=== PATIENT | female | born 1940 | race Caucasian/White ===

== ENCOUNTER 2016-04-02 08:53 | Outpatient (CLI) | payer OTHER | END 2016-04-02 08:54 | disposition home or self-care (01) | DX: E03.9 Hypothyroidism, unspecified (principal); E78.5 Hyperlipidemia, unspecified ==

== ENCOUNTER 2016-07-03 20:31 | Outpatient (CLI) | payer OTHER ==
[2016-07-04 06:03] LABS: TEST RESULT REPORT (())
== END 2016-07-03 20:32 | disposition home or self-care (01) ==
LOC: LAB.R 20:31
PROVIDERS: ATTEND Nurse Practitioner Primary Care
DX: E55.9 Vitamin D deficiency, unspecified (principal); Z79.899 Other long term (current) drug therapy
CPT/HCPCS: 81599; 82306

== ENCOUNTER 2016-10-06 10:13 | Outpatient (CLI) | payer OTHER ==
--- NOTE | 2016-10-07 18:00 | Mammography Report ---
DIGITAL SCREENING MAMMOGRAM: 10/06/2016 CLINICAL INDICATION: A 76-year-old with personal history of right breast cancer status post lumpecto my and chemoradiation. COMPARISON: 09/2015, 09/2014, 09/2013, 09/2012. TECHNIQUE: Routine CC and MLO projections were obtained of the breasts. The breasts again demonstrate scattered fibroglandular densities bilaterally. Postoperative and post -treatment changes in the right breast are stable. Coarse, typically benign calcifications are prese nt. No suspicious masses, clustered microcalcifications, or regions of architectural distortion are identified. IMPRESSION: BENIGN FINDINGS. RECOMMENDATION: ROUTINE ANNUAL SCREENING UNLESS OTHERWISE CLINICALLY INDICATED. BIRADS CATEGORY: 2, BENIGN FINDINGS. STANDARD QUALIFYING STATEMENTS 1. This examination was reviewed with the aid of Computed-Aided Detection (CAD). 2. A negative or benign imaging report should not delay biopsy if clinically suspicious findings are present. Consider surgical consultation if warranted. More than 5% of cancers are not identified b y imaging. 3. Dense breasts may obscure an underlying neoplasm. JOB #: [id number] EXT JOB #:[id number]
== END 2016-10-06 10:14 | disposition home or self-care (01) ==
LOC: DI 10:13
PROVIDERS: ATTEND Nurse Practitioner Primary Care
DX: Z12.31 Encounter for screening mammogram for malignant neoplasm of breast (principal); Z08 Encounter for follow-up examination after completed treatment for malignant neoplasm; Z85.3 Personal history of malignant neoplasm of breast
CPT/HCPCS: 77067

== ENCOUNTER 2017-04-07 09:01 | Outpatient (CLI) | payer OTHER ==
[2017-04-07 14:14] LABS: BASOPHILS % (AUTO) 0.4 %; EOSINOPHILS # (AUTO) 0.2 10^3/uL (0.0-0.7); EOSINOPHILS % (AUTO) 4.6 %; LYMPHOCYTES # (AUTO) 1.5 10^3/uL (1.5-3.5); LYMPHOCYTES % (AUTO) 28.6 %; MEAN CORPUSCULAR HGB CONC 33.9 g/dL (32.0-36.0); MEAN CORPUSCULAR VOLUME 88.5 fL (81.0-99.0); MEAN PLATELET VOLUME 7.7 fL (7.9-10.8); MONOCYTES # (AUTO) 0.6 10^3/uL (0.0-1.0); MONOCYTES % (AUTO) 11.9 %; NEUTROPHILS # (AUTO) 2.8 10^3/uL (1.5-6.6); NEUTROPHILS % (AUTO) 54.5 %; PLT - PLATELET COUNT 275 10^3/uL (130-450); RED BLOOD COUNT 4.66 10^6/uL (4.20-5.40); RED CELL DISTRIBUTION WIDTH 14.5 % (12.0-15.0); WHITE BLOOD COUNT 5.1 x10^3/uL (4.8-10.8)
[2017-04-07 14:27] LABS: ALBUMIN/GLOBULIN RATIO 1.2 (1.0-2.2); ALKALINE PHOSPHATASE 48 IU/L (42-121); ALT ALANINE AMINOTRANSFERASE 13 IU/L (10-60); AST ASPARTATE AMINOTRANSFERASE 18 IU/L (10-42); BILIRUBIN,TOTAL 0.9 mg/dL (0.2-1.0); BUN - BLOOD UREA NITROGEN 16 mg/dL (6-20); CARBON DIOXIDE - CO2 26 mmol/L (21-32); CHLORIDE 97 mmol/L (101-111); CHOL/HDL RATIO 3.5 (<4.4); CHOLESTEROL 249 mg/dL; CREATININE 0.8 mg/dL (0.4-1.0); GFR - MDRD 70 (>89); GLUCOSE 92 mg/dL (70-100); HDL CHOLESTEROL 71 mg/dL; LDL CHOLESTEROL,CALCULATED 156 mg/dL; LDL/HDL RATIO 2.2 (<4.4); SODIUM 134 mmol/L (135-145); TOTAL PROTEIN 7.3 g/dL (6.7-8.2); VLDL CHOLESTEROL 22 mg/dL
== END 2017-04-07 09:02 | disposition home or self-care (01) ==
LOC: LAB.R 09:01
PROVIDERS: ATTEND Nurse Practitioner Primary Care
DX: E55.9 Vitamin D deficiency, unspecified (principal); G60.9 Hereditary and idiopathic neuropathy, unspecified; E03.9 Hypothyroidism, unspecified; E78.5 Hyperlipidemia, unspecified; Z79.899 Other long term (current) drug therapy
CPT/HCPCS: 80053; 80061; 82306; 83721; 84443; 85025

== ENCOUNTER 2017-10-16 10:12 | Outpatient (CLI) | payer OTHER ==
--- NOTE | 2017-10-20 10:39 | DEXA Report ---
Reason: ASYMPTOMATIC MENOPAUSAL STATE Procedure Date: 10/16/2017 Accession Number: [id number] / [id number] Procedure: DEX - Dexa Spine and/or Hip CPT Code: FULL RESULT: EXAM: Dexa Spine and/or Hip DATE: 10/16/2017 11:27 AM CLINICAL HISTORY: ASYMPTOMATIC MENOPAUSAL STATE TECHNIQUE: Dual energy x-ray absorptiometry (DXA) was performed on a [employer] System. Regions measured are the AP Spine, femoral neck, and if needed forearm. COMPARISON: 10/08/2015. In accordance with the International Society for Clinical Densitometry (ISCD) guidelines, data from previous exams may be reanalyzed using current recommendations and techniques. This is done to allow a more accurate basis for comparison with the current study. FINDINGS: The data for the lumbar spine is as follows: BMD (g/cm/cm) T-SCORE Z-SCORE REGION L1 1.073 -0.5 0.7 L2 1.153 -0.4 0.8 L3 1.288 0.7 1.9 L4 1.237 0.3 1.5 TOTAL 1.199 0.2 1.4 NOTE: All evaluable vertebrae are used for classification The data for the hip is as follows: BMD (g/cm/cm) T-SCORE Z-SCORE REGION Neck 0.839 -1.4 0.2 TOTAL 0.811 -1.6 -0.1 NOTE: The femoral neck or total proximal femur, whichever is lowest, is used for classification. DXA RESULTS SUMMARY: Spine SCAN DATE AGE BMD CHANGE VS CHANGE VS PREVIOUS PREVIOUS % 10[age]16/[age] 1.199 0.045* 3.9* 10/08/2015 [age] 1.154 * Denotes significant change at the 95% confidence level. Denotes dissimilar scan types or analysis methods. DXA RESULTS SUMMARY: Hip SCAN DATE AGE BMD CHANGE VS CHANGE VS PREVIOUS PREVIOUS % 10[age]16/2017 [age] 0.811 -0.031 -3.7 10/08/2015 [age] 0.842 * Denotes significant change at the 95% confidence level. Denotes dissimilar scan types or analysis methods. IMPRESSION: THE WHO CLASSIFICATION BASED ON THE INTERNATIONAL REFERENCE STANDARD IS OSTEOPENIA. THE FRACTURE RISK IS INCREASED. RECOMMENDATION: Patients with diagnosis of osteoporosis or osteopenia should have regular bone mineral density assessment. For those eligible for Medicare, routine testing is allowed once every 2 years. Testing frequency can be increased for patients who have rapidly progressing disease or for those who are receiving medical therapy to restore bone mass. COMMENT: World Health Organization (WHO) definitions for osteoporosis and osteopenia: NORMAL BMD: T-score at -1.0 or higher, fracture risk is low OSTEOPENIA BMD: T-score between -1.0 and -2.5, fracture risk is increased. OSTEOPOROSIS BMD: T-score at -2.5 or lower, fracture risk is high. National Osteoporosis Foundation recommends: 1. Obtain adequate dietary calcium (at least 1200 mg per day) and vitamin D (400-800 international units per day). 2. Participate, as appropriate, in regular weightbearing and muscle-strengthening exercise. 3. Avoid tobacco use and reduce alcohol and caffeine intake. 4. For more detailed information see the website at www.NOF.org.
== END 2017-10-16 10:13 | disposition home or self-care (01) ==
LOC: DI 10:12
PROVIDERS: ATTEND Nurse Practitioner Primary Care
DX: M85.88 Other specified disorders of bone density and structure, other site (principal)
CPT/HCPCS: 77080

== ENCOUNTER 2017-10-16 10:13 | Outpatient (CLI) | payer OTHER ==
--- NOTE | 2017-10-30 18:30 | Mammography Report ---
Reason: MAMOGRAM YEARLY SCREENING Procedure Date: 10/16/2017 Accession Number: [id number] / [id number] Procedure: LEE - Screening Mammo Dig Bilat CPT Code: FULL RESULT: EXAM: Screening Mammo Dig Bilat DATE: 10/16/2017 1:28 PM CLINICAL HISTORY: 77-year-old female with personal history of right breast lumpectomy and chemoradiation presents for screening mammogram. TECHNIQUE: Bilateral CC and MLO views were obtained. A right exaggerated CC view was also obtained. COMPARISON: None a made. None are available to the radiologist at the time of interpretation. FINDINGS: The breasts demonstrate diffuse fatty replacement bilaterally. Postsurgical changes are seen in the right breast. No suspicious masses, clustered microcalcifications, or regions of architectural distortion are identified. IMPRESSION: Benign findings RECOMMENDATION: Routine annual screening unless otherwise clinically indicated. BIRADS CATEGORY 2: Benign findings STANDARD QUALIFYING STATEMENTS: 1. This examination was not reviewed with the aid of Computer-Aided Detection (CAD). 2. A negative or benign imaging report should not delay biopsy if clinically suspicious findings are present. Consider surgical consultation if warrented. More than 5% of cancers are not identified by imaging. 3. Dense breasts may obscure an underlying neoplasm. 4. This examination was reviewed with the aid of 3D imaging (tomography).
== END 2017-10-16 10:14 | disposition home or self-care (01) ==
LOC: DI 10:13
PROVIDERS: ATTEND Nurse Practitioner Primary Care
DX: Z12.31 Encounter for screening mammogram for malignant neoplasm of breast (principal)
CPT/HCPCS: 77063; 77067

== ENCOUNTER → 2017-12-14 | Outpatient (CLI) | payer OTHER ==
[2017-12-14 18:41] LABS: BASOPHILS # (AUTO) 0.1 10^3/uL (0.0-0.1); BASOPHILS % (AUTO) 0.9 %; EOSINOPHILS # (AUTO) 0.2 10^3/uL (0.0-0.7); EOSINOPHILS % (AUTO) 3.5 %; HGB - HEMOGLOBIN 13.4 g/dL (12.0-16.0); MEAN CORPUSCULAR HEMOGLOBIN 30.4 pg (27.0-31.0); MEAN CORPUSCULAR HGB CONC 33.8 g/dL (32.0-36.0); MEAN CORPUSCULAR VOLUME 89.8 fL (81.0-99.0); MEAN PLATELET VOLUME 7.5 fL (7.9-10.8); MONOCYTES # (AUTO) 0.6 10^3/uL (0.0-1.0); MONOCYTES % (AUTO) 10.6 %; NEUTROPHILS # (AUTO) 3.8 10^3/uL (1.5-6.6); PLT - PLATELET COUNT 285 10^3/uL (130-450); RED BLOOD COUNT 4.42 10^6/uL (4.20-5.40); RED CELL DISTRIBUTION WIDTH 14.2 % (12.0-15.0); WHITE BLOOD COUNT 5.7 x10^3/uL (4.8-10.8)
[2017-12-14 18:54] LABS: CALCIUM 8.9 mg/dL (8.5-10.3); CREATININE 0.8 mg/dL (0.4-1.0)
[2017-12-14 19:21] LABS: BILIRUBIN,URINE NEGATIVE (NEGATIVE); GLUCOSE, URINE (UA) NEGATIVE (NEGATIVE); KETONES,URINE (UA) NEGATIVE (NEGATIVE); LEUKOCYTE ESTERASE, URINE MODERATE (NEGATIVE); NITRITE,URINE NEGATIVE (NEGATIVE); OCCULT BLOOD,URINE NEGATIVE (NEGATIVE); PH,URINE 6.5 PH (5.0-7.5); PROTEIN,URINE NEGATIVE (NEGATIVE); UROBILINOGEN,URINE 0.2 (NORMAL) E.U./dL (NORMAL)
[2017-12-14 19:40] LABS: CLARITY,URINE HAZY (CLEAR)
[2017-12-14 19:56] LABS: HEMOGLOBIN A1C 0.5 g/dL; HEMOGLOBIN A1C % 5.4 % (4.6-6.2)
== END ==
LOC: LAB.R 08:00
PROVIDERS: ATTEND Orthopaedic Surgery
DX: Z01.818 Encounter for other preprocedural examination (principal); R73.9 Hyperglycemia, unspecified
CPT/HCPCS: 80048; 81003; 83036; 85025

== ENCOUNTER 2018-06-01 14:34 | Outpatient (CLI) | payer OTHER ==
[2018-06-01 15:14] LABS: BASOPHILS % (AUTO) 0.5 %; EOSINOPHILS # (AUTO) 0.2 10^3/uL (0.0-0.7); EOSINOPHILS % (AUTO) 3.5 %; HGB - HEMOGLOBIN 13.6 g/dL (12.0-16.0); LYMPHOCYTES # (AUTO) 1.5 10^3/uL (1.5-3.5); LYMPHOCYTES % (AUTO) 30.1 %; MEAN CORPUSCULAR HEMOGLOBIN 28.3 pg (27.0-31.0); MEAN CORPUSCULAR HGB CONC 33.2 g/dL (32.0-36.0); MEAN CORPUSCULAR VOLUME 85.2 fL (81.0-99.0); MEAN PLATELET VOLUME 7.2 fL (7.9-10.8); MONOCYTES # (AUTO) 0.6 10^3/uL (0.0-1.0); MONOCYTES % (AUTO) 10.9 %; NEUTROPHILS # (AUTO) 2.8 10^3/uL (1.5-6.6); PLT - PLATELET COUNT 279 10^3/uL (130-450); RED BLOOD COUNT 4.79 10^6/uL (4.20-5.40); RED CELL DISTRIBUTION WIDTH 16.4 % (12.0-15.0); WHITE BLOOD COUNT 5.1 x10^3/uL (4.8-10.8)
[2018-06-01 15:20] LABS: CALCIUM 8.8 mg/dL (8.5-10.3); CREATININE 0.8 mg/dL (0.4-1.0)
== END 2018-06-01 14:35 | disposition home or self-care (01) ==
LOC: LAB 14:34
PROVIDERS: ATTEND Orthopaedic Surgery
DX: Z01.818 Encounter for other preprocedural examination (principal)
CPT/HCPCS: 36415; 80048; 85025

== ENCOUNTER 2018-09-02 08:32 | Outpatient (CLI) | payer OTHER ==
[2018-09-02 08:59] LABS: BASOPHILS % (AUTO) 0.6 %; EOSINOPHILS # (AUTO) 0.2 10^3/uL (0.0-0.7); EOSINOPHILS % (AUTO) 4.9 %; HGB - HEMOGLOBIN 13.2 g/dL (12.0-16.0); LYMPHOCYTES # (AUTO) 1.3 10^3/uL (1.5-3.5); LYMPHOCYTES % (AUTO) 26.6 %; MEAN CORPUSCULAR HGB CONC 32.2 g/dL (32.0-36.0); MEAN CORPUSCULAR VOLUME 90.1 fL (81.0-99.0); MEAN PLATELET VOLUME 8.9 fL (7.9-10.8); MONOCYTES # (AUTO) 0.6 10^3/uL (0.0-1.0); MONOCYTES % (AUTO) 11.3 %; NEUTROPHILS # (AUTO) 2.7 10^3/uL (1.5-6.6); NEUTROPHILS % (AUTO) 56.2 %; PLT - PLATELET COUNT 303 10^3/uL (130-450); RED BLOOD COUNT 4.55 10^6/uL (4.20-5.40); RED CELL DISTRIBUTION WIDTH 14.6 % (12.0-15.0); WHITE BLOOD COUNT 4.9 x10^3/uL (4.8-10.8)
[2018-09-02 09:02] LABS: ALT ALANINE AMINOTRANSFERASE 14 IU/L (10-60); AST ASPARTATE AMINOTRANSFERASE 17 IU/L (10-42); BUN - BLOOD UREA NITROGEN 19 mg/dL (6-20); CALCIUM 9.3 mg/dL (8.5-10.3); CARBON DIOXIDE - CO2 25 mmol/L (21-32); CHLORIDE 101 mmol/L (101-111); CREATININE 0.8 mg/dL (0.4-1.0); GFR - MDRD 69 (>89); GLUCOSE 110 mg/dL (70-100); SODIUM 138 mmol/L (135-145)
[2018-09-02 09:03] LABS: ALBUMIN/GLOBULIN RATIO 1.3 (1.0-2.2); ALKALINE PHOSPHATASE 57 IU/L (42-121); CHOL/HDL RATIO 3.7 (<4.4); CHOLESTEROL 253 mg/dL; HDL CHOLESTEROL 68 mg/dL; LDL CHOLESTEROL,CALCULATED 162 mg/dL; LDL/HDL RATIO 2.4 (<4.4); TOTAL PROTEIN 7.2 g/dL (6.7-8.2); VLDL CHOLESTEROL 23 mg/dL
[2018-09-02 09:44] LABS: THYROID STIMULATING HORMONE 0.84 uIU/mL (0.34-5.60)
== END 2018-09-02 23:59 | disposition home or self-care (01) ==
LOC: LAB 08:32
PROVIDERS: ATTEND Nurse Practitioner
DX: E03.9 Hypothyroidism, unspecified (principal); E55.9 Vitamin D deficiency, unspecified; F32.9 Major depressive disorder, single episode, unspecified; Z79.899 Other long term (current) drug therapy; E78.5 Hyperlipidemia, unspecified
CPT/HCPCS: 36415; 80053; 80061; 82306; 82607; 83721; 84443; 85025

== ENCOUNTER 2018-10-18 14:14 | Outpatient (CLI) | payer OTHER ==
--- NOTE | 2018-10-19 12:04 | Mammography Report ---
Reason: MAMMOGRAM YEARLY SCREENING Procedure Date: 10/18/2018 Accession Number: [id number] / [id number] Procedure: LEE - Screening Mammo Dig Bilat CPT Code: FULL RESULT: EXAM: Screening Mammo Dig Bilat DATE: 10/18/2018 3:41 PM CLINICAL HISTORY: Status post right lumpectomy with radiation and chemotherapy, for routine screening TECHNIQUE: (B) - Bilateral CC and MLO views were obtained. COMPARISON: 10/16/2017, 10/06/2016 and 10/08/2015 PARENCHYMAL PATTERN: (A) - The breasts demonstrate scattered fibroglandular densities bilaterally. FINDINGS: No significant interval change. Post therapeutic change right breast as before. There are no new suspicious masses, calcifications, or areas of distortion. IMPRESSION: Benign findings. BI-RADS category 2. RECOMMENDATION: (ANNUAL) - Recommend routine annual screening mammography. BI-RADS CATEGORY: (2) - Benign Findings. STANDARD QUALIFYING STATEMENTS: 1. This examination was not reviewed with the aid of Computer-Aided Detection (CAD). 2. A negative or benign imaging report should not preclude biopsy if clinically suspicious findings are present. 3. Dense breasts may obscure an underlying neoplasm. 4. This examination was reviewed without the aid of 3D breast imaging (tomosynthesis).
== END 2018-10-18 14:15 | disposition home or self-care (01) ==
LOC: DI 14:14
PROVIDERS: ATTEND Nurse Practitioner
DX: Z12.31 Encounter for screening mammogram for malignant neoplasm of breast (principal)
CPT/HCPCS: 77067

== ENCOUNTER 2019-06-24 15:00 | Outpatient (CLI) | payer OTHER ==
[2019-06-24 19:36] LABS: BILIRUBIN,URINE NEGATIVE (NEGATIVE); GLUCOSE, URINE (UA) NEGATIVE (NEGATIVE); KETONES,URINE (UA) NEGATIVE (NEGATIVE); LEUKOCYTE ESTERASE, URINE LARGE (NEGATIVE); NITRITE,URINE NEGATIVE (NEGATIVE); OCCULT BLOOD,URINE LARGE (NEGATIVE); PROTEIN,URINE NEGATIVE (NEGATIVE); UROBILINOGEN,URINE 0.2 (NORMAL) E.U./dL (NORMAL)
[2019-06-24 20:36] LABS: BACTERIA,URINE Many /HPF (None Seen); CLARITY,URINE CLEAR (CLEAR); RBC,URINE TNTC /HPF (0-5); SQUAMOUS EPITHELIAL CELL,UR RARE Squamous (<= Few); WBC CLUMPS,URINE PRESENT
== END 2019-06-24 23:59 | disposition home or self-care (01) ==
LOC: LAB.R 15:00
PROVIDERS: ATTEND Nurse Practitioner
DX: R31.9 Hematuria, unspecified (principal)
CPT/HCPCS: 81001

== ENCOUNTER 2019-06-25 11:11 | Outpatient (CLI) | payer OTHER ==
--- NOTE | 2019-06-26 05:22 | Ultrasound Report ---
Reason: ABNORMAL UTERINE BLEEDING Procedure Date: 06/25/2019 Accession Number: [id number] / [id number] Procedure: US - Pelvic w/Transvaginal CPT Code: Final Report FULL RESULT: EXAM: PELVIC ULTRASOUND EXAM DATE: 06/25/2019 11:10 AM. CLINICAL HISTORY: Abnormal uterine bleeding. History of breast cancer and was on estrogen blockers 199905/11/2008. Currently has UTI. COMPARISON: None. TECHNIQUE: Realtime transabdominal pelvic scan performed to identify the uterus and adnexa and as an overview of other pelvic structures, followed by transvaginal scan to provide greater detail of the uterus and adnexa, with static image documentation. FINDINGS: Uterus: 9.6 x 3.8 x 5.8 cm, volume 110.8 cc. Anteverted position. Normal overall size and echotexture. Masses: None. Endometrium: Endometrial cavity is distended and filled with heterogeneous debris. Endometrial lining at periphery of endometrial cavity appears slightly irregular although measurement provided is of the endometrial cavity rather than endometrial lining. Along anterior endometrium, there is hyperechoic heterogeneous structure with associated feeder vessel measuring 1.4 x 0.6 x 0.9 cm. There is increased vascularity along endometrium at the fundus. Cervix: Unremarkable. Right Ovary: Not seen due to atrophy. Left Ovary: Not seen due to atrophy Free Fluid: None. Other: None. IMPRESSION: 1. Slightly irregular endometrium with increased vascularity and distended endometrial cavity containing heterogeneous debris, likely component of blood products. Endometrial lining at periphery of endometrial cavity appears slightly irregular although measurement provided is of endometrial cavity rather than peripheral endometrium. Repeat ultrasound can be performed to obtain measurement. Given the amount of fluid in endometrial cavity, consider cervical stenosis versus other cause of cervical obstruction. Neoplasm not excluded. 2. Lesion along anterior endometrium measuring 1.4 x 0.6 x 0.9 cm with associated vessel suggestive of polyp. 3. Ovaries not seen due to atrophy. RADIA
== END 2019-06-25 11:12 | disposition home or self-care (01) ==
LOC: DI 11:11
PROVIDERS: ATTEND Nurse Practitioner
DX: R93.89 Abnormal findings on diagnostic imaging of other specified body structures (principal); N85.9 Noninflammatory disorder of uterus, unspecified
CPT/HCPCS: 76830; 76856

== ENCOUNTER 2019-08-09 12:08 | Outpatient (CLI) | payer OTHER ==
[2019-08-09 13:06] LABS: BASOPHILS % (AUTO) 0.5 %; EOSINOPHILS # (AUTO) 0.2 10^3/uL (0.0-0.7); EOSINOPHILS % (AUTO) 3.4 %; HGB - HEMOGLOBIN 14.7 g/dL (12.0-16.0); LYMPHOCYTES # (AUTO) 1.3 10^3/uL (1.5-3.5); LYMPHOCYTES % (AUTO) 21.6 %; MEAN CORPUSCULAR HEMOGLOBIN 30.9 pg (27.0-31.0); MEAN CORPUSCULAR HGB CONC 33.2 g/dL (32.0-36.0); MEAN CORPUSCULAR VOLUME 93.3 fL (81.0-99.0); MEAN PLATELET VOLUME 9.6 fL (7.9-10.8); MONOCYTES # (AUTO) 0.6 10^3/uL (0.0-1.0); MONOCYTES % (AUTO) 10.5 %; NEUTROPHILS # (AUTO) 3.9 10^3/uL (1.5-6.6); NEUTROPHILS % (AUTO) 63.7 %; PLT - PLATELET COUNT 276 10^3/uL (130-450); RED BLOOD COUNT 4.75 10^6/uL (4.20-5.40); RED CELL DISTRIBUTION WIDTH 14.2 % (12.0-15.0); WHITE BLOOD COUNT 6.1 x10^3/uL (4.8-10.8)
[2019-08-09 13:22] LABS: ALBUMIN 4.4 g/dL (3.2-5.5); ALBUMIN/GLOBULIN RATIO 1.6 (1.0-2.2); CALCIUM 9.2 mg/dL (8.5-10.3); CREATININE 0.7 mg/dL (0.4-1.0); TOTAL PROTEIN 7.2 g/dL (6.7-8.2)
== END 2019-08-09 12:09 | disposition home or self-care (01) ==
LOC: LAB 12:08
PROVIDERS: ATTEND Obstetrics & Gynecology
DX: Z01.812 Encounter for preprocedural laboratory examination (principal); N95.0 Postmenopausal bleeding; N85.00 Endometrial hyperplasia, unspecified; Z11.59 Encounter for screening for other viral diseases
CPT/HCPCS: 80053; 81599; 85025

== ENCOUNTER 2019-08-11 06:18 | Day surgery (SDC) | payer OTHER ==
[2019-08-11] MEDS ORDERED: PROPOFOL 200 MG/20 ML VIAL IVP ONE (06:19)
[2019-08-11] MEDS ORDERED: PHENYLEPHRINE 50 MG/5 ML VIAL IV ONE (06:19)
[2019-08-11] MEDS ORDERED: LACTATED RINGERS 1,000 ML IV ONE (06:19)
[2019-08-11] MEDS ORDERED: GLYCOPYRROLATE 1 MG/5 ML VIAL IVP ONE (06:19)
[2019-08-11] MEDS ORDERED: fentaNYL 100 MCG/2 ML VIAL IVP ONE (06:19)
[2019-08-11] MEDS ORDERED: ACETAMINOPHEN 1,000 MG/100 ML 100 ML IV ONE ×2 (06:19→06:42)
[2019-08-11] MEDS ORDERED: LIDOCAINE-MPF 2% 5 ML VIAL IM ONE (06:19)
[2019-08-11] MEDS ORDERED: CEFAZOLIN SODIUM IN 0.9 % NACL 2 GM/100 ML BAG IV ONE (06:25)
[2019-08-11] MEDS ORDERED: GABAPENTIN 400 MG CAPSULE ONE (06:42)
[2019-08-11] MEDS ORDERED: CELECOXIB 100 MG CAPSULE PO ONE (06:42)
--- NOTE | 2019-08-11 07:06 | ANESTHESIA ---
Pre-Anesthesia VS, & Labs - Diagnosis post menopausal bleeding - Procedure myosure hysteroscopy dnc Vital Signs: Temp Pulse Resp BP Pulse Ox 36.2 C L 80 20 138/84 H 95 08/11/19 06:31 08/11/19 06:31 08/11/19 06:31 08/11/19 06:31 08/11/19 06:31 Height 5 ft 4 in Weight (kg) 86.9 kg - NPO >8 hours - Is Patient ?: No - Lab Results Current Lab Results: Laboratory Tests 08/11/19 06:51: POC Whole Bld Glucose 105 H Home Medications and Allergies Home Medications: Ambulatory Orders Cholecalciferol (Vitamin D3) [Vitamin D] 2,000 unit PO DAILY 08/09/19 Cyanocobalamin (Vitamin B-12) [Vitamin B-12] 1,000 mcg PO ONCE 08/09/19 Levothyroxine Sodium 88 mcg PO DAILY 08/09/19 Magnesium 250 mg PO QPM 08/09/19 Turmeric Root Extract [Turmeric] 500 mg PO DAILY 08/09/19 Cholecalciferol (Vitamin D3) [Vitamin D] 2,000 unit PO DAILY 08/09/19 Cyanocobalamin (Vitamin B-12) [Vitamin B-12] 1,000 mcg PO ONCE 08/09/19 Levothyroxine Sodium 88 mcg PO DAILY 08/09/19 Magnesium 250 mg PO QPM 08/09/19 Turmeric Root Extract [Turmeric] 500 mg PO DAILY 08/09/19 Allergies/Adverse Reactions: Allergies Allergy/AdvReac Type Severity Reaction Status Date / Time adhesive Allergy Rash Verified 08/09/19 11:12 Penicillins Allergy Rash Verified 08/09/19 11:12 Anes History & Medical History - Anesthetic History Anesthesia Complications: reports: No previous complications Family history of Anesthesia Complications: Denies Family history of Malignant Hyperthermia: Denies - Medical History Cardiovascular: reports: High cholesterol Pulmonary: reports: None Gastrointestinal: reports: Colon polyps Urinary: reports: Chronic bladder infection Neuro: reports: None Musculoskeletal: reports: Osteoarthritis Endocrine/Autoimmune: reports: HyPOthyroidism Blood Disorders: reports: None Skin: reports: Other Smoking Status: Never smoker (wine 2 drinks with dinner) Psychosocial: reports: Alcohol - Surgical History General: Colonoscopy Eyes Ears Nose Throat (EENT): Tonsil/Adenoidectomy Gynecologic: Dilation and currettage Orthopedic: Knee replacement, Other Exam General: Alert, Oriented x3, Cooperative, No acute distress Dental: WNL Mouth Openin Fingerbreadth Neck Mobility: Normal Mallampati classification: II Thyromental Distance: 4-6 cm Respiratory: Lungs clear, Normal breath sounds, No respiratory distress, No accessory muscle use Cardiovascular: Regular rate, Normal S1, Normal S2, No murmurs Abdomen: Normal bowel sounds, Soft, No tenderness, No hepatospenomegaly, No masses Extremities: No clubbing, No cyanosis, No edema, Normal pulses, No tenderness/swelling Neurological: Normal gait, Normal speech, Strength at 5/5 X4 ext, Normal tone, Sensation intact, Cranial nerves 3-12 NL, Reflexes 2+ Mental/Cognitive Status: Alert/Oriented X3, Normal for patient Cognitive Status: Within normal limits Plan Anesthesia Type: General Consent for Procedure(s) Verified and Reviewed: Yes Code Status: Attempt Resuscitation ASA classification: 2-Mild systemic disease Is this case an emergency?: No
[2019-08-11] MEDS: LIDOCAINE 1%-EPI 1:100000 20 ML MDV ONE ×2 (07:27→08:22)
--- NOTE | 2019-08-11 08:50 | OPERATIVE REPORT ---
Operative Report - General Procedure Date: 08/11/19 Planned Procedure: Hysteroscopy D&C with possible polypectomy/myomectomy Pre-Op Diagnosis: Postmenopausal bleeding and fluid-filled uterine cavity Procedure Performed: D&C with hysteroscopy and polypectomy Post Op Diagnosis: Same and endoemtrial polyps - Procedure Note Primary Surgeon: Dinora Gonzalez MD Anesthesia Technique: Local, MAC, Other Pathology: Specimen 1: Endometrial fluid for cytology Specimen 2: uterine contents IV Fluids (mL): 450 Estimated Blood Loss (mL): 5 Urine Output (mL): 60 Indications: Patient is a 79-year-old G3, P3 who has been having ongoing postmenopausal bleeding with increased vaginal discharge and drainage. On 06/25/2019 she underwent a pelvic ultrasound that showed an endometrial cavity distended and filled with heterogeneous debris. The endometrial lining at the periphery of the endometrial cavity appears slightly irregular although measurement provided is of the endometrial cavity rather than the endometrial lining. Along anterior endometrium, there is a hypoechoic heterogeneous structure with associated feeder vessel measuring 1.4 x 0.6 x 0.9 cm there is increased vascularity along the endometrium at the fundus. Findings: Thick mucus within endometrial cavity. Uterine cavity with several polyps with nodular implants. Bilateral tubal ostia visualized. Complications: None - Other Other Information/Narrative: Risks benefits and alternatives to the procedure were reviewed. Consent was again confirmed. Patient was taken to the operating room where she underwent general anesthesia. She was positioned in dorsolithotomy position with legs resting in yellowfin stirrups. She was prepped and draped in the usual sterile fashion. Preoperative antibiotics were not indicated. Preoperative checklist was performed. Exam under anesthesia was performed. Speculum was placed in the vagina and the cervix was visualized. Single-tooth tenaculum was placed at the anterior cervical lip. Paracervical block was administered using a total of 20 cc of 1% lidocaine with epinephrine was injected at the 4:00 and 8:00 positions lateral to the portio of the cervix. The cervical os was serially dilated with Hegar dilators to accommodate the caliber of the diagnostic hysteroscope. A red rubber catheter attached to a 50 cc syringe was inserted through the os but the endometrial fluid proved too thick to aspirate. Sharp curettage was performed and cervical mucus was collected and sent in a separate specimen for pathology. The hysteroscope was inserted and findings were noted as above. The hysteroscopic morcellator was inserted through the operative port. The intrauterine polyps were morcellated under direct visualization. Uterine cavity was smooth at close of the procedure. Hysteroscope was removed. All instruments were removed from the uterus. Tenaculum was removed. Tenaculum sites were noted to be hemostatic. All instruments were removed from the vagina. Procedure was well-tolerated without complication. Fluid deficit: 160
[2019-08-11 09:18] VITALS: BP 115/74
== END 2019-08-11 06:19 | disposition home or self-care (01) ==
LOC: SDS 06:18
PROVIDERS: ATTEND Obstetrics & Gynecology
PROC: 0UDB7ZZ Extraction of Endometrium, Via Natural or Artificial Opening (ICD-10-PCS; 2019-08-11)
PROC: 0UB98ZZ Excision of Uterus, Via Natural or Artificial Opening Endoscopic (ICD-10-PCS; principal; 2019-08-11 07:30)
DX: N95.0 Postmenopausal bleeding (principal); N84.0 Polyp of corpus uteri; Z85.3 Personal history of malignant neoplasm of breast
CPT/HCPCS: 58558; A9270; J0131; J0690; J7120

== ENCOUNTER 2019-09-08 09:00 | Outpatient (CLI) | payer OTHER ==
[2019-09-08 11:35] LABS: BASOPHILS % (AUTO) 0.4 %; EOSINOPHILS # (AUTO) 0.2 10^3/uL (0.0-0.7); EOSINOPHILS % (AUTO) 4.5 %; HGB - HEMOGLOBIN 14.1 g/dL (12.0-16.0); LYMPHOCYTES # (AUTO) 1.4 10^3/uL (1.5-3.5); LYMPHOCYTES % (AUTO) 27.7 %; MEAN CORPUSCULAR HEMOGLOBIN 30.7 pg (27.0-31.0); MEAN CORPUSCULAR HGB CONC 32.9 g/dL (32.0-36.0); MEAN PLATELET VOLUME 9.6 fL (7.9-10.8); MONOCYTES # (AUTO) 0.5 10^3/uL (0.0-1.0); MONOCYTES % (AUTO) 11.1 %; NEUTROPHILS # (AUTO) 2.7 10^3/uL (1.5-6.6); NEUTROPHILS % (AUTO) 56.1 %; PLT - PLATELET COUNT 281 10^3/uL (130-450); RED CELL DISTRIBUTION WIDTH 14.2 % (12.0-15.0); WHITE BLOOD COUNT 4.9 x10^3/uL (4.8-10.8)
[2019-09-08 12:06] LABS: ALBUMIN 4.2 g/dL (3.2-5.5); ALBUMIN/GLOBULIN RATIO 1.4 (1.0-2.2); ALKALINE PHOSPHATASE 44 IU/L (42-121); ALT ALANINE AMINOTRANSFERASE 16 IU/L (10-60); AST ASPARTATE AMINOTRANSFERASE 15 IU/L (10-42); BILIRUBIN,TOTAL 1.3 mg/dL (0.2-1.0); BUN - BLOOD UREA NITROGEN 15 mg/dL (6-20); CALCIUM 9.1 mg/dL (8.5-10.3); CARBON DIOXIDE - CO2 27 mmol/L (21-32); CHLORIDE 102 mmol/L (101-111); CHOL/HDL RATIO 3.6 (<4.4); CHOLESTEROL 251 mg/dL; CREATININE 0.8 mg/dL (0.4-1.0); GLUCOSE 113 mg/dL (70-100); HDL CHOLESTEROL 69 mg/dL; LDL CHOLESTEROL,CALCULATED 153 mg/dL; LDL/HDL RATIO 2.2 (<4.4); SODIUM 139 mmol/L (135-145); TOTAL PROTEIN 7.2 g/dL (6.7-8.2); VLDL CHOLESTEROL 29 mg/dL
== END 2019-09-08 23:59 | disposition home or self-care (01) ==
LOC: LAB.WCP 09:00
PROVIDERS: ATTEND Nurse Practitioner
DX: Z79.899 Other long term (current) drug therapy (principal); G60.9 Hereditary and idiopathic neuropathy, unspecified; E78.5 Hyperlipidemia, unspecified; E03.9 Hypothyroidism, unspecified; E55.9 Vitamin D deficiency, unspecified
CPT/HCPCS: 36415; 80053; 80061; 82306; 83721; 84443; 85025

== ENCOUNTER 2019-10-20 13:19 | Outpatient (CLI) | payer OTHER | END 2019-10-20 23:59 | disposition home or self-care (01) | LOC: LAB.R 13:19 | PROVIDERS: ATTEND Family Medicine | DX: N39.0 Urinary tract infection, site not specified (principal) | CPT/HCPCS: 87086 ==

== ENCOUNTER 2019-10-29 08:00 | Outpatient (CLI) | payer OTHER | END 2019-10-29 23:59 | disposition home or self-care (01) | LOC: LAB.S 08:00 | PROVIDERS: ATTEND Physician Assistant | DX: N39.0 Urinary tract infection, site not specified (principal) | CPT/HCPCS: 87086 ==

== ENCOUNTER 2019-11-11 14:37 | Outpatient (CLI) | payer OTHER ==
--- NOTE | 2019-11-14 10:27 | Mammography Report ---
BILATERAL DIGITAL SCREENING MAMMOGRAM: 11/11/2019 CLINICAL: Routine screening. Personal history of right breast cancer. Comparison is made to exams dated: 10/18/2018 mammogram, 10/16/2017 mammogram, 10/06/2016 mammogram, 10/07 mammogram - [facility], 10/04/2014 mammogram, and 10/04/2013 mammogram - [facility]. The tissue of both breasts is predominantly fatty. There are benign post operative findings in the right breast. No significant masses, calcifications, or other findings are seen in either breast. There has been no significant interval change. IMPRESSION: BENIGN There is no mammographic evidence of malignancy. A 1 year screening mammogram is recommended. This exam was interpreted at Station ID: [id number]. NOTE: For mammograms, a report in lay terms will be sent to the patient. Approximately 15% of breast malignancies will not be visualized mammographically. In the management of a palpable breast mass, a negative mammogram must not discourage biopsy of a clinically suspicious lesion. Electronically Signed By: Claudia cain/gracia:11/11/2019 15:58:06 ACR BI-RADS Category 2: Benign Finding(s) 3342F PARENCHYMAL PATTERN: (F) - The breast(s) demonstrate(s) diffuse fatty replacement. BI-RADS CATEGORY: (2) - 2 RECOMMENDATION: (ANNUAL) - Recommend routine annual screening mammography. [id number] 1 year screening LATERALITY: (B)
== END 2019-11-11 14:38 | disposition home or self-care (01) ==
LOC: DI 14:37
DX: Z12.31 Encounter for screening mammogram for malignant neoplasm of breast (principal); Z85.3 Personal history of malignant neoplasm of breast
CPT/HCPCS: 77067

== ENCOUNTER 2019-11-11 14:38 | Outpatient (CLI) | payer OTHER ==
--- NOTE | 2019-11-11 15:53 | DEXA Report ---
PROCEDURE: Dexa Spine and/or Hip INDICATIONS: POSTMENOPAUSAL TECHNIQUE: Dual energy x-ray absorptiometry (DXA) was performed on a [employer] System. Regions measur ed are the AP Spine, femoral neck, and if needed forearm. COMPARISON: DEXA 10/16/17 FINDINGS: Lumbar Spine: Bone Mineral Density 1.192 g/cm/cm,T score 0.1, compared to 0.2 on prior exam. Left Hip: Bone Mineral Density 0.855 g/cm/cm,T score -1.2, compared to -1.6 on prior exam. Left Femoral Neck: Bone Mineral Density 0.766 g/cm/cm, T score -2.0, compared to -1.4 on prior exam. (T score greater or equal to -1.0: NORMAL) (T score from -1.1 to -2.4: OSTEOPENIA) (T score less than or equal to -2.5 to: OSTEOPOROSIS) Impression: Moderate osteopenia within the left femoral neck markedly progressive compared to prior e xam. Mild improvement of minimal osteopenia within the left hip. Patients with diagnosis of osteoporosis or osteopenia should have regular bone mineral density assess ment. For those eligible for Medicare, routine testing is allowed once every 2 years. Testing frequ ency can be increased for patients who have rapidly progressing disease or for those who are receivin g medical therapy to restore bone mass. Reviewed by: Kate Minaya MD on 11/11/2019 3:52 PM PDT Approved by: Kate Minaya MD on 11/11/2019 3:52 PM PDT Station ID: [id number]
== END 2019-11-11 14:39 | disposition home or self-care (01) ==
LOC: DI 14:38
PROVIDERS: ATTEND Nurse Practitioner Family
DX: M85.89 Other specified disorders of bone density and structure, multiple sites (principal); Z78.0 Asymptomatic menopausal state
CPT/HCPCS: 77080

== ENCOUNTER 2019-11-17 12:06 | Outpatient (CLI) | payer OTHER ==
[2019-11-17 15:19] LABS: BILIRUBIN,URINE NEGATIVE (NEGATIVE); GLUCOSE, URINE (UA) NEGATIVE (NEGATIVE); KETONES,URINE (UA) NEGATIVE (NEGATIVE); LEUKOCYTE ESTERASE, URINE NEGATIVE (NEGATIVE); NITRITE,URINE NEGATIVE (NEGATIVE); OCCULT BLOOD,URINE NEGATIVE (NEGATIVE); PH,URINE 6.5 PH (5.0-7.5); PROTEIN,URINE NEGATIVE (NEGATIVE); UROBILINOGEN,URINE 0.2 (NORMAL) E.U./dL (NORMAL)
[2019-11-17 15:21] LABS: CLARITY,URINE CLEAR (CLEAR)
[2019-11-17 15:31] LABS: BACTERIA,URINE Rare /HPF (None Seen); RBC,URINE 0-5 /HPF (0-5); SQUAMOUS EPITHELIAL CELL,UR RARE Squamous (<= Few)
== END 2019-11-17 12:07 | disposition home or self-care (01) ==
LOC: LAB 12:06
PROVIDERS: ATTEND Obstetrics & Gynecology
DX: R39.15 Urgency of urination (principal); Z87.440 Personal history of urinary (tract) infections
CPT/HCPCS: 81001; 87086

== ENCOUNTER 2019-11-22 15:44 | Outpatient (CLI) | payer OTHER ==
[2019-11-22 18:27] LABS: BASOPHILS % (AUTO) 0.4 %; EOSINOPHILS # (AUTO) 0.1 10^3/uL (0.0-0.7); EOSINOPHILS % (AUTO) 1.6 %; HGB - HEMOGLOBIN 14.2 g/dL (12.0-16.0); LYMPHOCYTES # (AUTO) 1.7 10^3/uL (1.5-3.5); LYMPHOCYTES % (AUTO) 24.3 %; MEAN CORPUSCULAR HEMOGLOBIN 30.4 pg (27.0-31.0); MEAN CORPUSCULAR VOLUME 92.1 fL (81.0-99.0); MEAN PLATELET VOLUME 9.4 fL (7.9-10.8); MONOCYTES # (AUTO) 0.7 10^3/uL (0.0-1.0); MONOCYTES % (AUTO) 10.4 %; NEUTROPHILS # (AUTO) 4.4 10^3/uL (1.5-6.6); NEUTROPHILS % (AUTO) 62.9 %; PLT - PLATELET COUNT 294 10^3/uL (130-450); RED BLOOD COUNT 4.67 10^6/uL (4.20-5.40); RED CELL DISTRIBUTION WIDTH 14.1 % (12.0-15.0); WHITE BLOOD COUNT 6.9 x10^3/uL (4.8-10.8)
[2019-11-22 19:32] LABS: ALBUMIN 4.4 g/dL (3.2-5.5); ALBUMIN/GLOBULIN RATIO 1.8 (1.0-2.2); BILIRUBIN,TOTAL 0.9 mg/dL (0.2-1.0); CALCIUM 8.9 mg/dL (8.5-10.3); CREATININE 0.8 mg/dL (0.4-1.0); TOTAL PROTEIN 6.9 g/dL (6.7-8.2)
[2019-11-22 19:40] LABS: THYROID STIMULATING HORMONE 0.92 uIU/mL (0.34-5.60)
[2019-11-22 19:42] LABS: FREE T3 3.17 pg/mL (2.5-3.9)
[2019-11-22 19:43] LABS: FREE T4 (FREE THYROXINE) 1.14 ng/dL (0.58-1.64)
== END 2019-11-22 23:59 | disposition home or self-care (01) ==
LOC: LAB.WCP 15:44
PROVIDERS: ATTEND Nurse Practitioner
DX: Z01.818 Encounter for other preprocedural examination (principal); F32.9 Major depressive disorder, single episode, unspecified; Z79.899 Other long term (current) drug therapy; E03.9 Hypothyroidism, unspecified
CPT/HCPCS: 36415; 80053; 84439; 84443; 84481; 85025

== ENCOUNTER 2020-02-16 09:59 | Outpatient (CLI) | payer OTHER ==
[2020-02-16] MEDS ORDERED: IOVERSOL 320 100 ML VIAL IVP ONE ×2 (10:26→12:29)
[2020-02-16] MEDS ORDERED: IOVERSOL 320 50 ML VIAL ONE (10:26)
--- NOTE | 2020-02-16 12:15 | CT Report ---
PROCEDURE: Abdomen/Pelvis W INDICATIONS: MALIGNANT NEOPLASM OF ENDOMETRIUM CONTRAST: IV CONTRAST: Optiray 320 ml: 100 PO CONTRAST: Optiray 320 ml50 TECHNIQUE: After the administration of oral and intravenous contrast, 5 mm thick sections acquired from the diap hragms to the symphysis. 5 mm thick coronal and sagittal reformats were acquired. For radiation dos e reduction, the following was used: automated exposure control, adjustment of mA and/or kV accordin g to patient size. COMPARISON: None. FINDINGS: Image quality: Excellent. ABDOMEN: Lung bases: Lung bases are clear. Heart size is normal. Solid organs: Liver and spleen are normal in size and enhancement. Gallbladder is unremarkable. Bi liary system is non dilated. Pancreas enhances normally. No adrenal nodules. Kidneys demonstrate n ormal size and enhancement, without hydronephrosis. Peritoneum and bowel: Large hiatal hernia with incidental organoaxial volvulus of the stomach. Bowel loops demonstrate normal wall thickness and caliber. No free fluid or air. Nodes and vessels: No retroperitoneal or mesenteric adenopathy by size criteria. Aorta and inferior vena cava are normal in size. Miscellaneous: Supraumbilical ventral hernia containing fat. PELVIS: Genitourinary: Bladder wall thickness is normal. Miscellaneous: Uterus is surgically absent. Small left inguinal hernia containing fat. Small, shotty inguinal and common femoral lymph nodes bilaterally. Small, shotty distal external iliac lymph nodes bilaterally. Bones: No suspicious bony lesions. No vertebral body compression fractures. IMPRESSION: 1. Uterus is surgically absent. 2. Small, shotty bilateral external iliac, common femoral, inguinal lymph nodes. 3. No evidence of metastatic disease in the abdomen and pelvis. 4. Ventral hernia containing fat. 5. Large hiatal hernia. Reviewed by: Agustin Mcnulty MD on 02/16/2020 12:14 PM PST Approved by: Agustin Mcnulty MD on 02/16/2020 12:14 PM PST Station ID: [id number]
[2020-02-16] MEDS ORDERED: IOVERSOL 320 50 ML VIAL PO ONE (12:28)
== END 2020-02-16 10:00 | disposition home or self-care (01) ==
LOC: LAB 09:59 → DI 10:00
PROVIDERS: ATTEND Specialist
DX: C54.1 Malignant neoplasm of endometrium (principal)
CPT/HCPCS: 74177; Q9967

== ENCOUNTER 2020-02-16 10:08 | Outpatient (CLI) | payer OTHER ==
[2020-02-16 10:57] LABS: CREATININE 0.9 mg/dL (0.4-1.0)
--- OUTSIDE RECORDS SUMMARY | 2020-02-22 01:05 | EXTERNAL MEDICAL SUMMARY RPT | Continuity of Care Document ---
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 dical [place] 2019-08-11 06:18 POSTMENOPAUSAL BLEEDING [facility] 2019-08-11 06:18 PERSONAL HISTORY OF MALIGNANT 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 [facility] THERAPY 2020-02-16 10:08 MALIGNANT NEOPLASM OF ENDOMETRIUM [facility] Allergies date description facility [facility] CODE[facility] METRONIDAZOLE [facility] PENICILLINS [facility] SULFA ANTIBIOTICS [facility] NO KNOWN ALLERGIES [facility] Penicillins [facility] adhesive [facility] CYCLOBENZAPRINE [facility] COCONUT CUSTARD FLAVOR [facility] edical Center IODINE AND IODIDE CONTAINING PRODUCTS [facility] ACETAMINOPHEN-CODEINE [facility] dical [place] [facility] HYDROCODONE-ACETAMINOPHEN [facility] LATEX [facility] PENICILLINS [facility] POTASSIUM IODIDE [facility] SULFA (SULFONAMIDE ANTIBIOTICS) [facility] NO KNOWN ALLERGIES [facility]ODONE [facility] CIPROFLOXACIN [facility] METRONIDAZOLE [facility] BUPROPION [facility] LISINOPRIL [facility] No Known Drug Allergies [facility] Results Social History date description facility [id number]
== END 2020-02-16 10:09 | disposition home or self-care (01) ==
LOC: LAB 10:08
PROVIDERS: ATTEND Specialist
DX: C54.1 Malignant neoplasm of endometrium (principal)
CPT/HCPCS: 36415; 82565; 84520

== ENCOUNTER 2020-05-11 09:15 | Outpatient (CLI) | payer OTHER ==
[2020-05-11 09:33] LABS: BASOPHILS % (AUTO) 0.4 %; EOSINOPHILS # (AUTO) 0.2 10^3/uL (0.0-0.7); EOSINOPHILS % (AUTO) 4.3 %; HCT - HEMATOCRIT 43.5 % (37.0-47.0); HGB - HEMOGLOBIN 14.4 g/dL (12.0-16.0); LYMPHOCYTES # (AUTO) 1.1 10^3/uL (1.5-3.5); LYMPHOCYTES % (AUTO) 21.8 %; MEAN CORPUSCULAR HEMOGLOBIN 30.2 pg (27.0-31.0); MEAN CORPUSCULAR HGB CONC 33.1 g/dL (32.0-36.0); MEAN CORPUSCULAR VOLUME 91.2 fL (81.0-99.0); MEAN PLATELET VOLUME 8.5 fL (7.9-10.8); MONOCYTES # (AUTO) 0.9 10^3/uL (0.0-1.0); MONOCYTES % (AUTO) 18.1 %; NEUTROPHILS # (AUTO) 2.7 10^3/uL (1.5-6.6); NEUTROPHILS % (AUTO) 55.2 %; PLT - PLATELET COUNT 293 10^3/uL (130-450); RED BLOOD COUNT 4.77 10^6/uL (4.20-5.40); RED CELL DISTRIBUTION WIDTH 13.6 % (12.0-15.0); WHITE BLOOD COUNT 4.9 x10^3/uL (4.8-10.8)
[2020-05-11 09:48] LABS: ALBUMIN 4.3 g/dL (3.2-5.5); ALBUMIN/GLOBULIN RATIO 1.3 (1.0-2.2); ALKALINE PHOSPHATASE 68 IU/L (42-121); ALT ALANINE AMINOTRANSFERASE 21 IU/L (10-60); AST ASPARTATE AMINOTRANSFERASE 18 IU/L (10-42); BILIRUBIN,TOTAL 1.3 mg/dL (0.2-1.0); BUN - BLOOD UREA NITROGEN 15 mg/dL (6-20); CALCIUM 9.4 mg/dL (8.5-10.3); CARBON DIOXIDE - CO2 27 mmol/L (21-32); CHLORIDE 96 mmol/L (101-111); CHOL/HDL RATIO 4.4 (<4.4); CHOLESTEROL 277 mg/dL; CREATININE 0.8 mg/dL (0.4-1.0); GFR - MDRD 69 (>89); GLUCOSE 116 mg/dL (70-100); HDL CHOLESTEROL 63 mg/dL; LDL CHOLESTEROL,CALCULATED 187 mg/dL; POTASSIUM 4.2 mmol/L (3.5-5.0); SODIUM 134 mmol/L (135-145); TOTAL PROTEIN 7.5 g/dL (6.7-8.2); TRIGLYCERIDES 136 mg/dL; VLDL CHOLESTEROL 27 mg/dL
[2020-05-11 10:33] LABS: THYROID STIMULATING HORMONE 1.13 uIU/mL (0.34-5.60)
[2020-05-11 10:34] LABS: FREE T3 3.22 pg/mL (2.5-3.9)
[2020-05-11 10:35] LABS: FREE T4 (FREE THYROXINE) 1.24 ng/dL (0.58-1.64)
== END 2020-05-11 09:16 | disposition home or self-care (01) ==
LOC: LAB 09:15
PROVIDERS: ATTEND Nurse Practitioner
DX: E78.5 Hyperlipidemia, unspecified (principal); E03.9 Hypothyroidism, unspecified; E55.9 Vitamin D deficiency, unspecified; F32.9 Major depressive disorder, single episode, unspecified; Z79.899 Other long term (current) drug therapy
CPT/HCPCS: 36415; 80053; 80061; 83721; 84439; 84443; 84481; 85025

== ENCOUNTER 2020-07-07 10:59 | Emergency (ER) | payer OTHER ==
[2020-07-07 11:19] VITALS: BP 156/89
--- OUTSIDE RECORDS SUMMARY | 2020-07-07 11:40 | EXTERNAL MEDICAL SUMMARY RPT | Continuity of Care Document ---
:1940 Demographics Phone Unavailable Preferred Language Unknown Marital Status Unknown Mu-Ism Affiliation Unknown Race Unknown Ethnic Group Unknown Author Organization [place] Address [address] [place] [address] Phone Allergies Encounters Medications Problems Results
--- NOTE | 2020-07-07 11:49 | ED Physician Documentation ---
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 No LOC. No neck pain. Denies other injury.) Quality of pain: Aching (upper gum/teeth and lower lip) Associated symptoms: No: LOC, AMS, Nausea / vomiting Symptoms worsen with: Palpation, Movement (of lower lip) Contributing factors: No: Anticoagulated Similar symptoms before: Has not had sx before Review of Systems Constitutional: denies: Fever Nose: denies: Rhinorrhea / runny nose, Congestion Throat: denies: Sore throat Cardiac: denies: Chest pain / pressure Respiratory: denies: Cough GI: denies: Abdominal Pain, Nausea, Vomiting Skin: reports: Laceration (s) (lower lip outer and inside both) Musculoskeletal: denies: Neck pain, Back pain Neurologic: denies: Focal weakness, Numbness, Altered mental status PD PAST MEDICAL HISTORY - Past Medical History Cardiovascular: High cholesterol Respiratory: None Neuro: None Endocrine/Autoimmune: HyPOthyroidism GI: Colon polyps : Chronic bladder infection HEENT: Chronic vision loss Psych: Depression, Anxiety Musculoskeletal: Osteoarthritis Derm: Other - Past Surgical History General: Colonoscopy Ortho: Knee replacement (her ortho has her take abx Keflex 1 gm PO with any dental cleanings), 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 HEENT: Tonsil/Adenoidectomy - Present Medications Home Medications: Ambulatory Orders Medication Instructions Recorded Confirmed Cholecalciferol (Vitamin D3) 2,000 unit PO DAILY 08/09/19 08/09/19 [Vitamin D] Cyanocobalamin (Vitamin B-12) 1,000 mcg PO ONCE 08/09/19 08/09/19 [Vitamin B-12] Levothyroxine Sodium 88 mcg PO DAILY 08/09/19 08/11/19 Magnesium 250 mg PO QPM 08/09/19 08/09/19 Turmeric Root Extract [Turmeric] 500 mg PO DAILY 08/09/19 08/09/19 HYDROcod/ACETAM 5/325 [[place] 5/325] 1 ea PO Q6H PRN #8 tablet 07/07/20 - Allergies Allergies/Adverse Reactions: Allergies Allergy/AdvReac Type Severity Reaction Status Date / Time adhesive Allergy Rash Verified 07/07/20 11:19 Penicillins Allergy Rash Verified 07/07/20 11:19 - Social History Smoking Status: Never smoker (wine 2 drinks with dinner) PD ED PE NORMAL - Vitals Vital signs reviewed: Yes - General General: Alert and oriented X 3, No acute distress (appears uncomfortable due to lower lip and upper gums.), Well developed/nourished - HEENT HEENT: Pharynx benign, Dentition benign (no noted avulsions nor chips. The upper right gumline with some bruising and swelling though. Lower lip with lac to fatty tissue inside 1 cm. No FB. Outer with 2 cm lac on skin not crossing isa border. ) - Neck Neck: Supple, no meningeal sign, No bony TTP, No adenopathy - Respiratory Respiratory: Other (no chestwall tenderness) - Abdomen Abdomen: Soft, Non tender - Back Back: No CVA TTP, No spinal TTP - Derm Derm: Normal color, Warm and dry - Extremities Extremities: No tenderness to palpate, Normal ROM s pain - Neuro Neuro: Alert and oriented X 3, No motor deficit, No sensory deficit, Normal speech Results - Vitals Vitals: Vital Signs - 24 hr 07/07/20 11:11 Temperature 36.3 C L Heart Rate 88 Respiratory 16 Rate Blood Pressure 156/89 H O2 Saturation 99 Oxygen O2 Source Room air - Rads (name of study) head CT Radiology: Prelim report reviewed (no ICH nor acute process), See rad report Procedures - Laceration (location) lower lip through lac Length in cm: 2 (outer and inner lac, apparent through and through) Wound type: Linear, Into subcut fat Neurovascular status: Sensory intact Anesthesia: LET Wound preparation: Irrigated copiously NS, Wound explored, To the base. No: FB identified Deep layer closure: Vicryl, size #-0 - enter number (5), # sutures - enter number (1), Other (in inner lip area to close wound edges.) Skin layer closure: Nylon, Running, Size #-0 - enter number (5), Other (outer lip wound) Other: Patient tolerated well, No complications, Neurovascular intact, Tetanus UTD PD MEDICAL DECISION MAKING - ED course Complexity details: reviewed results, re-evaluated patient (the patient states she takes abx with dental cleaning per her Ortho. I would therefore give her dose for this oral injury. Lip lac sutured without problems. ), considered differential, d/w patient Departure - Departure Disposition: 01 Home, Self Care Clinical Impression: Fall from slip, trip, or stumble Qualifiers: Encounter type: initial encounter Qualified Code(s): W01.0XXA - Fall on same level from slipping, tripping and stumbling without subsequent striking against object, initial encounter Lip laceration Qualifiers: Encounter type: initial encounter Qualified Code(s): S01.511A - Laceration without foreign body of lip, initial encounter Contusion, gum Qualifiers: Encounter type: initial encounter Qualified Code(s): S00.532A - Contusion of oral cavity, initial encounter Condition: Stable Record reviewed to determine appropriate education?: Yes Instructions: ED Laceration Facial Sutr Tape Follow-Up: Anita eVlez DO [Primary Care Provider] - Prescriptions: HYDROcod/ACETAM 5/325 [[place] 5/325] 1 ea PO Q6H PRN #8 tablet PRN Reason: Pain Comments: It is okay to wash and shower. Clean off the wound twice a day with soap and water, or peroxide and water. Apply some antibiotic ointment to it to keep it moist. Also to watch for signs of infection such as purulence, redness or increasing pain. Return to your primary care or the ER at the specified time for suture removal. Suture removal skin sutures in 5 to 6 days. The sutures inside the mouth will dissolve on their own. Cleanse the inside laceration with just water and a Q- tip after meals and in the morning to remove any debris. Tylenol or ibuprofen if needed for pains. Add pain medicine if needed. Discharge Date/Time: 07/07/20 14:05
[2020-07-07] MEDS ORDERED: ACETAMINOPHEN 325 MG TABLET PO STA (12:12)
[2020-07-07] MEDS ORDERED: LIDOCAINE-EPINEPH-TETRACAINE 3 ML SYRINGE TOP STA (12:12)
--- NOTE | 2020-07-07 12:56 | CT Report ---
PROCEDURE: HEAD WO INDICATIONS: fall and struck face; mild headache TECHNIQUE: Noncontrast 4.5 mm thick angled axial sections acquired from the foramen magnum to the vertex. For r adiation dose reduction, the following was used: automated exposure control, adjustment of mA and/or kV according to patient size. COMPARISON: None. FINDINGS: Image quality: There is streak artifact seen through the skull base. CSF spaces: Basal cisterns are patent. No extra-axial fluid collections. Ventricles are normal in size and shape. Brain: No midline shift. No intracranial masses or hemorrhage. Glass-white matter interface is norm al. Skull and face: Calvarium and visualized facial bones are intact, without suspicious lesions. Sinuses: Visualized sinuses and mastoids are clear. IMPRESSION: No intracranial hemorrhage is seen. No significant intracranial abnormality is seen. No displaced facial bone fractures are seen. If there is strong clinical concern for a facial bone fr acture, please consider a dedicated maxillofacial CT for further evaluation. Reviewed by: Arnav Goldman MD on 07/07/2020 11:55 AM JOSE Approved by: Arnav Goldman MD on 07/07/2020 11:55 AM JOSE Station ID: [id number]
[2020-07-07] MEDS ORDERED: HYDROcod/ACETAM 5/325 MG TABLET PO STA (13:48)
[2020-07-07] MEDS ORDERED: cephALEXin 250 MG CAPSULE PO STA (13:48)
== END 2020-07-07 14:05 | disposition home or self-care (01) ==
LOC: ED 10:59
DX: S01.511A Laceration without foreign body of lip, initial encounter (principal); S00.532A Contusion of oral cavity, initial encounter; W01.0XXA Fall on same level from slipping, tripping and stumbling without subsequent striking against object, initial encounter; Y92.410 Unspecified street and highway as the place of occurrence of the external cause
CPT/HCPCS: 12011; 70450; 99284; A9270

== ENCOUNTER 2020-11-28 12:47 | Outpatient (CLI) | payer OTHER | END 2020-11-28 12:48 | disposition home or self-care (01) | LOC: COV 12:47 | PROVIDERS: ATTEND Surgery | DX: Z01.812 Encounter for preprocedural laboratory examination (principal); Z20.822 Contact with and (suspected) exposure to COVID-19 ==

== ENCOUNTER 2021-01-10 13:42 | Outpatient (CLI) | payer OTHER ==
--- NOTE | 2021-01-11 10:19 | Mammography Report ---
BILATERAL DIGITAL SCREENING MAMMOGRAM 3D/2D: 01/10/2021 CLINICAL: Routine screening. Personal history of right breast cancer. Comparison is made to exams dated: 11/11/2019 mammogram, 10/18/2018 mammogram, 10/16/2017 mammogram, 10/06 mammogram, 10/08/2015 mammogram - [facility], and 10/04/2014 mammogram - [facility]. There are scattered fibroglandular elements in both breasts. There are benign post operative findings in the right breast. No significant masses, calcifications, or other findings are seen in either breast. There has been no significant interval change. IMPRESSION: BENIGN There is no mammographic evidence of malignancy. A 1 year screening mammogram is recommended. This exam was interpreted at Station ID: [id number]. NOTE: For mammograms, a report in lay terms will be sent to the patient. Approximately 15% of breast malignancies will not be visualized mammographically. In the management of a palpable breast mass, a negative mammogram must not discourage biopsy of a clinically suspicious lesion. Electronically Signed By: Santhosh Ibrahim M.D. ddp/penrad:01/10/2021 15:02:20 ACR BI-RADS Category 2: Benign Finding(s) 3342F PARENCHYMAL PATTERN: (A) - The breast(s) demonstrate(s) scattered fibroglandular densities. BI-RADS CATEGORY: (2) - 2 RECOMMENDATION: (ANNUAL) - Recommend routine annual screening mammography. [id number] 1 year screening LATERALITY: (B)
== END 2021-01-10 13:43 | disposition home or self-care (01) ==
LOC: DI 13:42
DX: Z12.31 Encounter for screening mammogram for malignant neoplasm of breast (principal); Z80.3 Family history of malignant neoplasm of breast

== ENCOUNTER 2021-07-19 08:00 | Outpatient (CLI) | payer OTHER ==
[2021-07-19 09:41] LABS: BASOPHILS % (AUTO) 0.6 %; EOSINOPHILS # (AUTO) 0.3 10^3/uL (0.0-0.7); HCT - HEMATOCRIT 43.2 % (37.0-47.0); HGB - HEMOGLOBIN 14.2 g/dL (12.0-16.0); LYMPHOCYTES # (AUTO) 1.5 10^3/uL (1.5-3.5); LYMPHOCYTES % (AUTO) 31.5 %; MEAN CORPUSCULAR HEMOGLOBIN 29.9 pg (27.0-31.0); MEAN CORPUSCULAR HGB CONC 32.9 g/dL (32.0-36.0); MEAN CORPUSCULAR VOLUME 90.9 fL (81.0-99.0); MEAN PLATELET VOLUME 8.9 fL (7.9-10.8); MONOCYTES # (AUTO) 0.6 10^3/uL (0.0-1.0); MONOCYTES % (AUTO) 11.6 %; NEUTROPHILS # (AUTO) 2.4 10^3/uL (1.5-6.6); NEUTROPHILS % (AUTO) 50.1 %; PLT - PLATELET COUNT 248 10^3/uL (130-450); RED BLOOD COUNT 4.75 10^6/uL (4.20-5.40); RED CELL DISTRIBUTION WIDTH 14.2 % (12.0-15.0); WHITE BLOOD COUNT 4.8 x10^3/uL (4.8-10.8)
[2021-07-19 09:43] LABS: ALBUMIN 4.3 g/dL (3.2-5.5); ALBUMIN/GLOBULIN RATIO 1.5 (1.0-2.2); ALKALINE PHOSPHATASE 38 IU/L (42-121); ALT ALANINE AMINOTRANSFERASE 15 IU/L (10-60); AST ASPARTATE AMINOTRANSFERASE 19 IU/L (10-42); BILIRUBIN,TOTAL 1.3 mg/dL (0.2-1.0); BUN - BLOOD UREA NITROGEN 17 mg/dL (6-20); CARBON DIOXIDE - CO2 28 mmol/L (21-32); CHLORIDE 99 mmol/L (101-111); CHOL/HDL RATIO 3.4 (<4.4); CHOLESTEROL 254 mg/dL; CREATININE 0.8 mg/dL (0.4-1.0); GFR - MDRD 69 (>89); GLUCOSE 108 mg/dL (70-100); HDL CHOLESTEROL 74 mg/dL; LDL CHOLESTEROL,CALCULATED 161 mg/dL; LDL/HDL RATIO 2.2 (<4.4); POTASSIUM 4.1 mmol/L (3.5-5.0); SODIUM 134 mmol/L (135-145); TOTAL PROTEIN 7.1 g/dL (6.7-8.2); TRIGLYCERIDES 94 mg/dL; VLDL CHOLESTEROL 19 mg/dL
[2021-07-19 09:56] LABS: THYROID STIMULATING HORMONE 1.04 uIU/mL (0.34-5.60)
[2021-07-19 09:58] LABS: FREE T4 (FREE THYROXINE) 1.03 ng/dL (0.58-1.64)
== END 2021-07-19 23:59 | disposition home or self-care (01) ==
LOC: LAB 08:00
PROVIDERS: ATTEND Physician Assistant
DX: E03.9 Hypothyroidism, unspecified (principal); C50.919 Malignant neoplasm of unspecified site of unspecified female breast; E78.5 Hyperlipidemia, unspecified; C54.1 Malignant neoplasm of endometrium
CPT/HCPCS: 36415; 80053; 80061; 83721; 84439; 84443; 85025

== ENCOUNTER 2022-01-17 14:00 | Outpatient (CLI) | payer OTHER ==
--- NOTE | 2022-01-20 12:57 | Mammography Report ---
BILATERAL DIGITAL SCREENING MAMMOGRAM 3D/2D: 01/17/2022 CLINICAL: Routine screening. Personal history of right breast cancer. Comparison is made to exams dated: 10/18/2018 mammogram, 10/16/2017 mammogram, 01/10/2021 mammogram, and 11/11/2019 mammogram - [facility]. There are scattered areas of fibroglandular density in both breasts (category b / 25%-50% glandular t issue). There are benign post operative findings in the right breast. No significant masses, calcifications, or other findings are seen in either breast. There has been no significant interval change. IMPRESSION: BENIGN There is no mammographic evidence of malignancy. A 1 year screening mammogram is recommended. This exam was interpreted at Station ID: [id number]. NOTE: For mammograms, a report in lay terms will be sent to the patient. Approximately 15% of breast malignancies will not be visualized mammographically. In the management of a palpable breast mass, a negative mammogram must not discourage biopsy of a clinically suspicious lesion. Electronically Signed By: Solo barrow/gracia:01/17/2022 16:40:56 ACR BI-RADS Category 2: Benign Finding(s) 3342F PARENCHYMAL PATTERN: (A) - The breast(s) demonstrate(s) scattered fibroglandular densities. BI-RADS CATEGORY: (2) - 2 RECOMMENDATION: (ANNUAL) - Recommend routine annual screening mammography. [id number] 1 year screening LATERALITY: (B)
== END 2022-01-17 14:01 | disposition home or self-care (01) ==
LOC: DI 14:00
PROVIDERS: ATTEND Physician Assistant
DX: Z12.31 Encounter for screening mammogram for malignant neoplasm of breast (principal); Z85.3 Personal history of malignant neoplasm of breast

== ENCOUNTER 2022-01-17 14:01 | Outpatient (CLI) | payer OTHER ==
--- NOTE | 2022-01-18 09:57 | DEXA Report ---
PROCEDURE: Dexa Spine and/or Hip INDICATIONS: OSTEOPENIA TECHNIQUE: Dual energy x-ray absorptiometry (DXA) was performed on a [employer] System. Regions measur ed are the AP Spine, femoral neck, and if needed forearm. COMPARISON: DEXA, 11/11/2019 FINDINGS: Lumbar Spine: Bone Mineral Density 1.156 g/cm/cm,T score -0.2, normal Left Femoral Neck: Bone Mineral Density 0.809 g/cm/cm, T score -1.6, osteopenia Left Hip: Bone Mineral Density 0.862 g/cm/cm,T score -1.2, osteopenia (T score greater or equal to -1.0: NORMAL) (T score from -1.1 to -2.4: OSTEOPENIA) (T score less than or equal to -2.5 to: OSTEOPOROSIS) Impression: Based on WHO criteria, the patient has osteopenia. Compared to last exam on 11/11/2019, the patient's bone mineral density in lumbar spine has decreased by 3.0%. Her bone mineral density in left hip is unchanged not significantly changed. Patients with diagnosis of osteoporosis or osteopenia should have regular bone mineral density assess ment. For those eligible for Medicare, routine testing is allowed once every 2 years. Testing frequ ency can be increased for patients who have rapidly progressing disease or for those who are receivin g medical therapy to restore bone mass. Reviewed by: Kaleigh Garcia MD on 01/18/2022 9:56 AM PST Approved by: Kaleigh Garcia MD on 01/18/2022 9:56 AM PST Station ID: [id number]
== END 2022-01-17 14:02 | disposition home or self-care (01) ==
LOC: DI 14:01
PROVIDERS: ATTEND Physician Assistant
DX: M85.89 Other specified disorders of bone density and structure, multiple sites (principal)

== ENCOUNTER 2022-02-24 09:26 | Outpatient (CLI) | payer OTHER ==
[2022-02-24 09:42] LABS: BASOPHILS % (AUTO) 0.4 %; EOSINOPHILS # (AUTO) 0.1 10^3/uL (0.0-0.7); EOSINOPHILS % (AUTO) 2.8 %; HCT - HEMATOCRIT 43.1 % (37.0-47.0); LYMPHOCYTES # (AUTO) 1.5 10^3/uL (1.5-3.5); LYMPHOCYTES % (AUTO) 29.6 %; MEAN CORPUSCULAR HEMOGLOBIN 29.5 pg (27.0-31.0); MEAN CORPUSCULAR HGB CONC 32.5 g/dL (32.0-36.0); MEAN CORPUSCULAR VOLUME 90.7 fL (81.0-99.0); MEAN PLATELET VOLUME 8.7 fL (7.9-10.8); MONOCYTES # (AUTO) 0.5 10^3/uL (0.0-1.0); MONOCYTES % (AUTO) 10.7 %; NEUTROPHILS # (AUTO) 2.8 10^3/uL (1.5-6.6); NEUTROPHILS % (AUTO) 56.3 %; PLT - PLATELET COUNT 257 10^3/uL (130-450); RED BLOOD COUNT 4.75 10^6/uL (4.20-5.40); RED CELL DISTRIBUTION WIDTH 13.7 % (12.0-15.0); WHITE BLOOD COUNT 4.9 x10^3/uL (4.8-10.8)
[2022-02-24 10:01] LABS: ALBUMIN 4.1 g/dL (3.2-5.5); ALBUMIN/GLOBULIN RATIO 1.5 (1.0-2.2); BILIRUBIN,TOTAL 1.2 mg/dL (0.2-1.0); CALCIUM 9.2 mg/dL (8.5-10.3); CREATININE 0.8 mg/dL (0.4-1.0); TOTAL PROTEIN 6.9 g/dL (6.7-8.2)
[2022-02-24 10:13] LABS: THYROID STIMULATING HORMONE 0.4 uIU/mL (0.34-5.60)
[2022-02-24 10:15] LABS: FREE T4 (FREE THYROXINE) 1.3 ng/dL (0.58-1.64)
== END 2022-02-24 09:27 | disposition home or self-care (01) ==
LOC: LAB 09:26
PROVIDERS: ATTEND Physician Assistant
DX: E03.9 Hypothyroidism, unspecified (principal); C54.1 Malignant neoplasm of endometrium
CPT/HCPCS: 36415; 80053; 84439; 84443; 85025

== ENCOUNTER 2022-07-10 08:36 | Outpatient (CLI) | payer OTHER ==
[2022-07-10 08:56] LABS: BASOPHILS % (AUTO) 0.7 %; EOSINOPHILS # (AUTO) 0.2 10^3/uL (0.0-0.7); EOSINOPHILS % (AUTO) 3.6 %; HCT - HEMATOCRIT 41.3 % (37.0-47.0); HGB - HEMOGLOBIN 13.8 g/dL (12.0-16.0); LYMPHOCYTES # (AUTO) 1.8 10^3/uL (1.5-3.5); MEAN CORPUSCULAR HEMOGLOBIN 30.2 pg (27.0-31.0); MEAN CORPUSCULAR HGB CONC 33.4 g/dL (32.0-36.0); MEAN CORPUSCULAR VOLUME 90.4 fL (81.0-99.0); MEAN PLATELET VOLUME 8.9 fL (7.9-10.8); MONOCYTES # (AUTO) 0.6 10^3/uL (0.0-1.0); NEUTROPHILS # (AUTO) 3.5 10^3/uL (1.5-6.6); NEUTROPHILS % (AUTO) 56.5 %; PLT - PLATELET COUNT 251 10^3/uL (130-450); RED BLOOD COUNT 4.57 10^6/uL (4.20-5.40); RED CELL DISTRIBUTION WIDTH 14.1 % (12.0-15.0); WHITE BLOOD COUNT 6.1 x10^3/uL (4.8-10.8)
[2022-07-10 09:13] LABS: ALBUMIN/GLOBULIN RATIO 1.5 (1.0-2.2); ALKALINE PHOSPHATASE 39 IU/L (42-121); ALT ALANINE AMINOTRANSFERASE 15 IU/L (10-60); AST ASPARTATE AMINOTRANSFERASE 17 IU/L (10-42); BILIRUBIN,TOTAL 1.1 mg/dL (0.2-1.0); BUN - BLOOD UREA NITROGEN 23 mg/dL (6-20); CALCIUM 8.8 mg/dL (8.5-10.3); CARBON DIOXIDE - CO2 27 mmol/L (21-32); CHLORIDE 102 mmol/L (101-111); CHOLESTEROL 214 mg/dL; CREATININE 0.8 mg/dL (0.4-1.0); GFR - MDRD 69 (>89); GLUCOSE 115 mg/dL (70-100); HDL CHOLESTEROL 72 mg/dL; LDL CHOLESTEROL,CALCULATED 123 mg/dL; LDL/HDL RATIO 1.7 (<4.4); POTASSIUM 3.9 mmol/L (3.5-5.0); SODIUM 136 mmol/L (135-145); TOTAL PROTEIN 6.6 g/dL (6.7-8.2); TRIGLYCERIDES 97 mg/dL; VLDL CHOLESTEROL 19 mg/dL
[2022-07-10 09:21] LABS: T4 (THYROXINE) 7.55 ug/dL (6.09-12.23)
[2022-07-10 09:25] LABS: THYROID STIMULATING HORMONE 0.49 uIU/mL (0.34-5.60)
== END 2022-07-10 08:37 | disposition home or self-care (01) ==
LOC: LAB 08:36
PROVIDERS: ATTEND Registered Nurse
DX: E87.1 Hypo-osmolality and hyponatremia (principal); E78.5 Hyperlipidemia, unspecified; E03.9 Hypothyroidism, unspecified
CPT/HCPCS: 36415; 80053; 80061; 83721; 84436; 84443; 84480; 85025

== ENCOUNTER 2022-10-20 11:43 | Outpatient (CLI) | payer OTHER ==
[2022-10-20 12:30] LABS: THYROID STIMULATING HORMONE 0.18 uIU/mL (0.34-5.60)
== END 2022-10-20 11:44 | disposition home or self-care (01) ==
LOC: LAB 11:43
PROVIDERS: ATTEND Registered Nurse
DX: E03.9 Hypothyroidism, unspecified (principal)
CPT/HCPCS: 36415; 84439; 84443

== ENCOUNTER 2023-01-19 13:49 | Outpatient (CLI) | payer OTHER ==
--- NOTE | 2023-01-20 09:13 | Mammography Report ---
BILATERAL DIGITAL SCREENING MAMMOGRAM 3D/2D WITH EXAGGERATED CC: 01/19/2023 CLINICAL: Routine screening. Comparison is made to exams dated: 01/17/2022 mammogram, 01/10/2021 mammogram, 11/11/2019 mammogram, 10/18/2018 mammogram, 10/16/2017 mammogram, and 10/06/2016 mammogram - [facility]. Both breasts are almost entirely fatty (category a/<25% glandular tissue). There are benign post operative findings in the right breast. No significant masses, calcifications, or other findings are seen in either breast. There has been no significant interval change. IMPRESSION: BENIGN There is no mammographic evidence of malignancy. A 1 year screening mammogram is recommended. This exam was interpreted at Station ID: [id number]. NOTE: For mammograms, a report in lay terms will be sent to the patient. Approximately 15% of breast malignancies will not be visualized mammographically. In the management of a palpable breast mass, a negative mammogram must not discourage biopsy of a clinically suspicious lesion. Electronically Signed By: Carlee guaman/gracia:01/19/2023 17:02:18 letter sent: No_Letter ACR BI-RADS Category 2: Benign Finding(s) 3342F PARENCHYMAL PATTERN: (F) - The breast(s) demonstrate(s) diffuse fatty replacement. BI-RADS CATEGORY: (2) - 2 Mammogram [id number] 1 year screening LATERALITY: (B)
== END 2023-01-19 13:50 | disposition home or self-care (01) ==
LOC: DI 13:49
PROVIDERS: ATTEND Physician Assistant Medical
DX: Z12.31 Encounter for screening mammogram for malignant neoplasm of breast (principal); Z85.3 Personal history of malignant neoplasm of breast

== ENCOUNTER 2023-02-06 11:59 | Emergency (ER) | payer OTHER ==
[2023-02-06 13:46] LABS: BILIRUBIN,URINE NEGATIVE (NEGATIVE); GLUCOSE, URINE (UA) NEGATIVE (NEGATIVE); KETONES,URINE (UA) NEGATIVE (NEGATIVE); LEUKOCYTE ESTERASE, URINE NEGATIVE (NEGATIVE); NITRITE,URINE NEGATIVE (NEGATIVE); OCCULT BLOOD,URINE NEGATIVE (NEGATIVE); PH,URINE 6.5 PH (5.0-7.5); PROTEIN,URINE NEGATIVE (NEGATIVE); UROBILINOGEN,URINE 0.2 (NORMAL) E.U./dL (NORMAL)
[2023-02-06 14:07] LABS: CLARITY,URINE CLEAR (CLEAR)
--- NOTE | 2023-02-06 16:35 | ED Physician Documentation ---
History of Present Illness - Stated complaint Stated Complaint: - Chief complaint Chief Complaint: UTI - History obtained from History obtained from: Patient - Additonal information Additional information: Very nice 82-year-old female presents with a 3-day history of intermittent bladder pressure and urinary frequency. She does not have any pain, denies any dysuria but feels like she may have a urinary tract infection. She has not had any flank pain, no nausea or vomiting, no fever or chills. She otherwise feels well. She denies any vaginal discharge, no vaginal pruritus. She has started taking some cranberry supplement pills today, no other medications. Review of Systems Constitutional: reports: Reviewed and negative Cardiac: reports: Reviewed and negative Respiratory: reports: Reviewed and negative GI: reports: Reviewed and negative : reports: Frequency, Other (Bladder pressure). 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 HEENT: Tonsil/Adenoidectomy - Present Medications Home Medications: Ambulatory Orders Medication Instructions Recorded Confirmed Cholecalciferol (Vitamin D3) 2,000 unit PO DAILY 08/09/19 08/09/19 [Vitamin D] Cyanocobalamin (Vitamin B-12) 1,000 mcg PO ONCE 08/09/19 08/09/19 [Vitamin B-12] Levothyroxine Sodium 88 mcg PO DAILY 08/09/19 08/11/19 Magnesium 250 mg PO QPM 08/09/19 08/09/19 Turmeric Root Extract [Turmeric] 500 mg PO DAILY 08/09/19 08/09/19 HYDROcod/ACETAM 5/325 [[place] 5/325] 1 ea PO Q6H PRN #8 tablet 07/07/20 cephALEXin [Keflex] 500 mg PO BID #10 cap 02/06/23 - Allergies Allergies/Adverse Reactions: Allergies Allergy/AdvReac Type Severity Reaction Status Date / Time adhesive Allergy Rash Verified 02/06/23 12:12 Penicillins Allergy Rash Verified 02/06/23 12:12 - Social History Does the pt smoke?: No Smoking Status: Never smoker Does the pt drink ETOH?: No Does the pt have substance abuse?: No - Immunizations Immunizations are current?: Yes PD ED PE NORMAL - Vitals Vital signs reviewed: Yes - General General: Alert and oriented X 3, No acute distress, Well developed/nourished - Cardiac Cardiac: RRR, No murmur - Respiratory Respiratory: No respiratory distress, Clear bilaterally - Abdomen Abdomen: Normal bowel sounds, Soft, Non tender, Non distended - Back Back: No CVA TTP, No spinal TTP Results - Vitals Vitals: Vital Signs - 24 hr 02/06/23 12:12 Temperature 36.8 C Heart Rate 74 Respiratory 16 Rate Blood Pressure 150/77 H O2 Saturation 96 Oxygen O2 Source Room air - Labs Labs: Laboratory Tests 02/06/23 12:35 Urine Color YELLOW Urine Clarity CLEAR Urine pH 6.5 Ur Specific [place] 1.010 Urine Protein NEGATIVE Urine Glucose (UA) NEGATIVE Urine Ketones NEGATIVE Urine Occult Blood NEGATIVE Urine Nitrite NEGATIVE Urine Bilirubin NEGATIVE Urine Urobilinogen 0.2 (NORMAL) Ur Leukocyte Esterase NEGATIVE Ur Microscopic Review NOT INDICATED Urine Culture Comments NOT INDICATED PD Medical Decision Making - ED course Complexity details: reviewed results, re-evaluated patient, considered dif ferential, d/w patient ED course: 82-year-old female presents with mild bladder pressure intermittently over the last several days along with urinary frequency but no dysuria no flank pain no fever or chills. She is very well-appearing here on physical exam, her physical exam is unremarkable there is no CVAT noted to be reproducible abdominal pain. Her urinalysis is not suggestive of infection, and there is no blood, low suspicion for a kidney stone. I discussed with patient this may be better inflammation versus better prolapse, versus early UTI. I discussed Options with patient and recommended that she continue the cranberry pills that she is using, stable hydrated avoid caffeine, get plenty of rest the next few days, she can take ibuprofen as needed if she has any bladder fullness feeling. I will give her a prescription for Keflex to use only if symptoms do not improve the next couple of days. I discussed return precautions however if worsening inclu ding fever, flank pain, increasing bladder symptoms or new concerns. Departure - Departure Disposition: 01 Home, Self Care Clinical Impression: Cystitis Condition: Good Instructions: ED UTI Cystitis Female Prescriptions: cephALEXin [Keflex] 500 mg PO BID #10 cap Comments: Your urine test today does not not show a definite infection however your symptoms are suggestive of bladder inflammation or early infection. I would like you to try ibuprofen for the next couple of days and you can continue the cranberry supplement and drink plenty of water, and avoid caffeine. If you are still having symptoms, then you may start the antibiotics and take for the full 5 days. If you develop a fever, flank pain or new concerns, please return to the ER. I have sent in the prescription of antibiotic to your pharmacy. Again, do not start this unless symptoms do not improve. Forms: PCP List
[2023-02-06 16:46] VITALS: BP 140/70; O2SAT 98
== END 2023-02-06 16:42 | disposition home or self-care (01) ==
LOC: ED 11:59
DX: N30.90 Cystitis, unspecified without hematuria (principal)
CPT/HCPCS: 81001; 81003; 87086; 99283

== ENCOUNTER 2023-04-01 08:58 | Outpatient (CLI) | payer OTHER ==
[2023-04-01 09:08] LABS: BILIRUBIN,URINE NEGATIVE (NEGATIVE); GLUCOSE, URINE (UA) NEGATIVE (NEGATIVE); KETONES,URINE (UA) NEGATIVE (NEGATIVE); LEUKOCYTE ESTERASE, URINE TRACE (NEGATIVE); NITRITE,URINE NEGATIVE (NEGATIVE); OCCULT BLOOD,URINE NEGATIVE (NEGATIVE); PH,URINE 7.5 PH (5.0-7.5); PROTEIN,URINE NEGATIVE (NEGATIVE); UROBILINOGEN,URINE 0.2 (NORMAL) E.U./dL (NORMAL)
[2023-04-01 09:09] LABS: CLARITY,URINE CLEAR (CLEAR)
[2023-04-01 09:25] LABS: BASOPHILS % (AUTO) 0.4 %; EOSINOPHILS # (AUTO) 0.2 10^3/uL (0.0-0.7); EOSINOPHILS % (AUTO) 2.9 %; HCT - HEMATOCRIT 42.4 % (37.0-47.0); HGB - HEMOGLOBIN 13.7 g/dL (12.0-16.0); LYMPHOCYTES % (AUTO) 37.5 %; MEAN CORPUSCULAR HEMOGLOBIN 29.1 pg (27.0-31.0); MEAN CORPUSCULAR HGB CONC 32.3 g/dL (32.0-36.0); MONOCYTES # (AUTO) 0.6 10^3/uL (0.0-1.0); MONOCYTES % (AUTO) 11.5 %; NEUTROPHILS # (AUTO) 2.5 10^3/uL (1.5-6.6); NEUTROPHILS % (AUTO) 47.3 %; PLT - PLATELET COUNT 271 10^3/uL (130-450); RED BLOOD COUNT 4.71 10^6/uL (4.20-5.40); RED CELL DISTRIBUTION WIDTH 13.9 % (12.0-15.0); WHITE BLOOD COUNT 5.2 x10^3/uL (4.8-10.8)
[2023-04-01 09:38] LABS: ALBUMIN 4.2 g/dL (3.2-5.5); ALBUMIN/GLOBULIN RATIO 1.7 (1.0-2.2); ALKALINE PHOSPHATASE 46 IU/L (42-121); ALT ALANINE AMINOTRANSFERASE 14 IU/L (10-60); AST ASPARTATE AMINOTRANSFERASE 15 IU/L (10-42); BILIRUBIN,TOTAL 1.2 mg/dL (0.2-1.0); BUN - BLOOD UREA NITROGEN 14 mg/dL (6-20); CALCIUM 9.2 mg/dL (8.5-10.3); CARBON DIOXIDE - CO2 30 mmol/L (21-32); CHLORIDE 99 mmol/L (101-111); CHOL/HDL RATIO 3.4 (<4.4); CHOLESTEROL 225 mg/dL; CREATININE 0.8 mg/dL (0.6-1.3); GFR - MDRD 69 (>89); GLUCOSE 109 mg/dL (74-104); HDL CHOLESTEROL 66 mg/dL; LDL CHOLESTEROL,CALCULATED 135 mg/dL; POTASSIUM 4.1 mmol/L (3.5-4.5); SODIUM 134 mmol/L (135-145); TOTAL PROTEIN 6.7 g/dL (6.4-8.9); TRIGLYCERIDES 120 mg/dL (48-352); VLDL CHOLESTEROL 24 mg/dL
[2023-04-01 09:38] LABS: BACTERIA,URINE Rare /HPF (None Seen); RBC,URINE 0-5 /HPF (0-5); SQUAMOUS EPITHELIAL CELL,UR RARE Squamous (<= Few); WBC,URINE 0-3 /HPF (0-5)
[2023-04-01 19:52] LABS: ESTIMATED AVERAGE GLUCOSE 114 mg/dL (70-100); HEMOGLOBIN A1c% 5.6 % (4.27-6.07)
== END 2023-04-01 08:59 | disposition home or self-care (01) ==
LOC: LAB 08:58
PROVIDERS: ATTEND Nurse Practitioner Family
DX: E78.5 Hyperlipidemia, unspecified (principal); R73.9 Hyperglycemia, unspecified; R10.9 Unspecified abdominal pain; R35.0 Frequency of micturition; R30.0 Dysuria
CPT/HCPCS: 36415; 80053; 80061; 81001; 82306; 83036; 83721; 85025; 87086

== ENCOUNTER 2023-04-23 11:44 | Outpatient (CLI) | payer OTHER ==
[2023-04-23 12:32] LABS: ALBUMIN 4.3 g/dL (3.2-5.5); BILIRUBIN,TOTAL 0.8 mg/dL (0.2-1.0); CALCIUM 9.7 mg/dL (8.5-10.3); CREATININE 0.8 mg/dL (0.6-1.3); POTASSIUM 4.5 mmol/L (3.5-4.5); TOTAL PROTEIN 6.5 g/dL (6.4-8.9)
[2023-04-23 12:37] LABS: THYROID STIMULATING HORMONE 0.43 uIU/mL (0.34-5.60)
--- NOTE | 2023-04-23 14:57 | Ultrasound Report ---
PROCEDURE: Soft Tissue Head or Neck INDICATIONS: GOITER TECHNIQUE: Real-time scanning was performed of the thyroid gland, with image documentation. COMPARISON: None FINDINGS: Right: Thyroid lobe measures 4.2 x 1.2 x 0.8 cm, and is homogeneous in echotexture. Left: Thyroid lobe measures 2.9 x 1.1 x 0.9 cm, and is homogenous in echotexture. Isthmus: 2 cm thick. Nodule number: One Location: Isthmus Size: 0.5 x 0.3 x 0.4 cm. Composition: Solid. Echogenicity: Hypoechoic. Shape: wider than tall (0 points). Margins: Smooth (0 points). Echogenic foci: None (0 points). Total points: 4 ACR TI-RADS category: 4 IMPRESSION: Category 4 lesion as above. Secondary to size, no additional follow-up as below. ACR TI-RADS definitions and recommendations: TI-RADS 1 (benign): 0 points. FNA not needed. TI-RADS 2 (not suspicious): 2 points. FNA not needed. TI-RADS 3 (mildly suspicious): 3 points. "FNA if 2.5 cm or larger, follow up if 1.5 cm or larger (at 1, 3, and 5 years). TI-RADS 4 (moderately suspicious): 4-6 points. "FNA if 1.5 cm or larger, follow up if 1 cm or larger (at 1, 2, 3, and 5 years). TI-RADS 5 (highly suspicious): 7 points or more. "FNA if 1 cm or larger, follow up if 0.5 cm or larger (every year for 5 years). Reviewed by: Kate Minaya MD on 04/23/2023 2:55 PM PDT Approved by: Kate Minaya MD on 04/23/2023 2:55 PM PDT Station ID: [id number]
== END 2023-04-23 11:45 | disposition home or self-care (01) ==
LOC: DI 11:44
PROVIDERS: ATTEND Nurse Practitioner Family
DX: E04.8 Other specified nontoxic goiter (principal); E78.5 Hyperlipidemia, unspecified; E04.1 Nontoxic single thyroid nodule
CPT/HCPCS: 36415; 80053; 84443

== ENCOUNTER 2023-07-02 09:21 | Outpatient (CLI) | payer OTHER ==
[2023-07-02 09:32] LABS: BILIRUBIN,URINE NEGATIVE (NEGATIVE); GLUCOSE, URINE (UA) NEGATIVE (NEGATIVE); KETONES,URINE (UA) NEGATIVE (NEGATIVE); LEUKOCYTE ESTERASE, URINE NEGATIVE (NEGATIVE); NITRITE,URINE NEGATIVE (NEGATIVE); OCCULT BLOOD,URINE NEGATIVE (NEGATIVE); PH,URINE 7.5 PH (5.0-7.5); PROTEIN,URINE NEGATIVE (NEGATIVE); UROBILINOGEN,URINE 0.2 (NORMAL) E.U./dL (NORMAL)
[2023-07-02 09:42] LABS: CLARITY,URINE CLEAR (CLEAR)
[2023-07-02 09:46] LABS: ALBUMIN 4.2 g/dL (3.2-5.5); ALBUMIN/GLOBULIN RATIO 1.8 (1.0-2.2); ALKALINE PHOSPHATASE 43 IU/L (42-121); ALT ALANINE AMINOTRANSFERASE 12 IU/L (10-60); AST ASPARTATE AMINOTRANSFERASE 13 IU/L (10-42); BILIRUBIN,TOTAL 0.9 mg/dL (0.2-1.0); BUN - BLOOD UREA NITROGEN 16 mg/dL (6-20); CALCIUM 9.1 mg/dL (8.5-10.3); CARBON DIOXIDE - CO2 28 mmol/L (21-32); CHLORIDE 100 mmol/L (101-111); CHOLESTEROL 225 mg/dL; CREATININE 0.8 mg/dL (0.6-1.3); GFR - MDRD 69 (>89); GLUCOSE 131 mg/dL (74-104); HDL CHOLESTEROL 74 mg/dL; LDL CHOLESTEROL,CALCULATED 135 mg/dL; LDL/HDL RATIO 1.8 (<4.4); POTASSIUM 4.4 mmol/L (3.5-4.5); SODIUM 135 mmol/L (135-145); TOTAL PROTEIN 6.5 g/dL (6.4-8.9); TRIGLYCERIDES 82 mg/dL (48-352); VLDL CHOLESTEROL 16 mg/dL
[2023-07-02 10:01] LABS: THYROID STIMULATING HORMONE 0.41 uIU/mL (0.34-5.60)
[2023-07-02 10:41] LABS: RBC,URINE 0-5 /HPF (0-5); WBC,URINE 0-3 /HPF (0-5)
[2023-07-02 10:42] LABS: BACTERIA,URINE Rare /HPF (None Seen); EPITHELIAL CELLS,UR RARE Transitional /HPF (<= Few); SQUAMOUS EPITHELIAL CELL,UR FEW Squamous (<= Few)
[2023-07-02 10:43] LABS: CRYSTALS,URINE 6-10 Ca Phosphate /LPF
== END 2023-07-02 09:22 | disposition home or self-care (01) ==
LOC: LAB 09:21
PROVIDERS: ATTEND Nurse Practitioner Family
DX: E78.5 Hyperlipidemia, unspecified (principal); R10.9 Unspecified abdominal pain; E55.9 Vitamin D deficiency, unspecified; E03.9 Hypothyroidism, unspecified; R39.15 Urgency of urination
CPT/HCPCS: 36415; 80053; 80061; 81001; 82306; 83721; 84443; 87086

== ENCOUNTER 2023-08-03 14:12 | Outpatient (CLI) | payer OTHER ==
--- NOTE | 2023-08-03 15:04 | XRAY Report ---
PROCEDURE: Lumbar Spine 2-3V INDICATIONS: BILATERAL LEG PARASTHESIA TECHNIQUE: 3 views of the lumbar spine were acquired. COMPARISON: None. FINDINGS: Surgical change: None. Bones: 5 [id number] vertebrae are present. There is normal bony alignment. No vertebral body co mpression fractures. No suspicious bony lesions. 5 mm anterolisthesis of L5 on S1. Multilevel degene rative disc space loss, severe at L4-L5. Lower lumbar facet arthropathy. Soft tissues: Overlying bowel gas pattern is normal. No suspicious soft tissue calcifications. IMPRESSION: Degenerative change. No acute bony abnormality. Reviewed by: Agustin Mcnulty MD on 08/03/2023 3:02 PM PDT Approved by: Agustin Mcnulty MD on 08/03/2023 3:02 PM PDT Station ID: [id number]
== END 2023-08-03 14:13 | disposition home or self-care (01) ==
LOC: LAB 14:12
PROVIDERS: ATTEND Physician Assistant
DX: R20.2 Paresthesia of skin (principal); E55.9 Vitamin D deficiency, unspecified; M47.816 Spondylosis without myelopathy or radiculopathy, lumbar region
CPT/HCPCS: 36415; 82306; 82607

== ENCOUNTER 2023-08-31 14:42 | Outpatient (CLI) | payer OTHER ==
--- NOTE | 2023-08-31 15:52 | Ultrasound Report ---
PROCEDURE: Duplex Ext Veins Bilateral INDICATIONS: Bilateral lower leg numbness. TECHNIQUE: Real-time imaging, as well as color and pulse Doppler interrogation, were performed of the deep veins of both legs from the inguinal ligament to the popliteal fossa. Attempted visualization of the calf veins was performed. COMPARISON: None. FINDINGS: The deep veins are normally compressible, and free of intraluminal thrombus. Color and pu lse Doppler demonstrate normal phasic intravascular flow. There is normal augmentation response to d istal compression maneuver. IMPRESSION: No deep venous thrombosis of the visualized lower extremities. Reviewed by: Aleksandr Gaona MD on 08/31/2023 3:50 PM PDT Approved by: Aleksandr Gaona MD on 08/31/2023 3:50 PM PDT Station ID: [id number]
== END 2023-08-31 14:43 | disposition home or self-care (01) ==
LOC: DI 14:42
PROVIDERS: ATTEND Nurse Practitioner Family
DX: I83.10 Varicose veins of unspecified lower extremity with inflammation (principal)
CPT/HCPCS: 93970

== ENCOUNTER 2023-10-08 13:01 | Outpatient (CLI) | payer OTHER | END 2023-10-08 13:02 | disposition home or self-care (01) | LOC: NS 13:01 | PROVIDERS: ATTEND Nurse Practitioner Family | DX: N18.2 Chronic kidney disease, stage 2 (mild) (principal); E78.5 Hyperlipidemia, unspecified; E55.9 Vitamin D deficiency, unspecified | CPT/HCPCS: 97802 ==

== ENCOUNTER 2023-11-05 14:00 | Outpatient (CLI) | payer OTHER | END 2023-11-05 14:01 | disposition home or self-care (01) | LOC: NS 14:00 | PROVIDERS: ATTEND Nurse Practitioner Family | DX: Z71.3 Dietary counseling and surveillance (principal); N18.2 Chronic kidney disease, stage 2 (mild); E78.5 Hyperlipidemia, unspecified; E55.9 Vitamin D deficiency, unspecified; Z68.30 Body mass index [BMI] 30.0-30.9, adult | CPT/HCPCS: 97803 ==

== ENCOUNTER 2023-11-06 08:46 | Outpatient (CLI) | payer OTHER ==
[2023-11-06 08:57] LABS: BASOPHILS % (AUTO) 0.6 %; EOSINOPHILS # (AUTO) 0.2 10^3/uL (0.0-0.7); EOSINOPHILS % (AUTO) 2.4 %; HCT - HEMATOCRIT 44.7 % (37.0-47.0); HGB - HEMOGLOBIN 14.7 g/dL (12.0-16.0); LYMPHOCYTES # (AUTO) 2.3 10^3/uL (1.5-3.5); LYMPHOCYTES % (AUTO) 34.5 %; MEAN CORPUSCULAR HEMOGLOBIN 29.5 pg (27.0-31.0); MEAN CORPUSCULAR HGB CONC 32.9 g/dL (32.0-36.0); MEAN CORPUSCULAR VOLUME 89.6 fL (81.0-99.0); MEAN PLATELET VOLUME 8.8 fL (7.9-10.8); MONOCYTES # (AUTO) 0.7 10^3/uL (0.0-1.0); MONOCYTES % (AUTO) 10.4 %; NEUTROPHILS # (AUTO) 3.5 10^3/uL (1.5-6.6); PLT - PLATELET COUNT 272 10^3/uL (130-450); RED BLOOD COUNT 4.99 10^6/uL (4.20-5.40); RED CELL DISTRIBUTION WIDTH 13.9 % (12.0-15.0); WHITE BLOOD COUNT 6.7 x10^3/uL (4.8-10.8)
[2023-11-06 09:13] LABS: ALBUMIN 4.4 g/dL (3.2-5.5); ALBUMIN/GLOBULIN RATIO 1.7 (1.0-2.2); ALKALINE PHOSPHATASE 46 IU/L (42-121); ALT ALANINE AMINOTRANSFERASE 13 IU/L (10-60); AST ASPARTATE AMINOTRANSFERASE 13 IU/L (10-42); BILIRUBIN,TOTAL 1.1 mg/dL (0.2-1.0); BUN - BLOOD UREA NITROGEN 16 mg/dL (6-20); CALCIUM 9.4 mg/dL (8.5-10.3); CARBON DIOXIDE - CO2 30 mmol/L (21-32); CHLORIDE 97 mmol/L (101-111); CHOL/HDL RATIO 3.4 (<4.4); CHOLESTEROL 248 mg/dL; CREATININE 0.8 mg/dL (0.6-1.3); GFR - MDRD 69 (>89); GLUCOSE 106 mg/dL (74-104); HDL CHOLESTEROL 73 mg/dL; LDL CHOLESTEROL,CALCULATED 154 mg/dL; LDL/HDL RATIO 2.1 (<4.4); POTASSIUM 4.2 mmol/L (3.5-4.5); SODIUM 133 mmol/L (135-145); TRIGLYCERIDES 104 mg/dL; VLDL CHOLESTEROL 21 mg/dL
== END 2023-11-06 08:47 | disposition home or self-care (01) ==
LOC: LAB 08:46
PROVIDERS: ATTEND Nurse Practitioner Family
DX: E11.42 Type 2 diabetes mellitus with diabetic polyneuropathy (principal); R20.8 Other disturbances of skin sensation; E78.5 Hyperlipidemia, unspecified; E55.9 Vitamin D deficiency, unspecified; D64.9 Anemia, unspecified; R25.2 Cramp and spasm; E04.1 Nontoxic single thyroid nodule
CPT/HCPCS: 36415; 80053; 80061; 82306; 82607; 83721; 83735; 84443; 85025